=== PATIENT | female | born 1970 | race Caucasian/White ===

== ENCOUNTER 2020-04-15 12:52 | Outpatient (CLI) | payer OTHER, SELFPAY ==
--- NOTE | ~2020-04-15 | MM_ITS ---
EXAMINATION: MM diagnostic gato RT w wandy HISTORY: Approximately 6 x 9 mm circumscribed opacity in the very posterior aspect of mid to upper ri ght breast on screening MLO view of 09/25/2019, without ultrasound correlate on 10/15/2019 TECHNIQUE: ML, MLO and cc 3-D tomosynthesis images of the right breast and rotated lateral craniocaud al view were performed and synthetic 2-D images were generated. CAD analysis was submitted and interp reted. COMPARISON: 09/25/2019 bilateral digital screening mammogram 10/15/2019 diagnostic right digital mammogram and limited right breast ultrasound BREAST PARENCHYMAL COMPOSITION: There are scattered areas of fibroglandular density. FINDINGS: Previously reported mammographic opacity in the posterior mid to upper right breast on MLO projection is no longer detected. IMPRESSION: 1. No mammographic evidence of malignancy 2. Routine mammographic screening follow-up is recommended BI-RADS Category 1: Negative Reviewed, dictated and finalized at location A.
== END 2020-04-15 12:53 | disposition home or self-care (01) ==
LOC: ANHIMG 12:56
PROVIDERS: PCP Obstetrics & Gynecology; Visit Provider Obstetrics & Gynecology
DX: N63.10 Unspecified lump in the right breast, unspecified quadrant (principal)
CPT/HCPCS: 77061; 77065; G0279

== ENCOUNTER → 2021-10-16 11:02 | Outpatient (CLI) | payer OTHER, SELFPAY ==
--- NOTE | ~2021-10-16 | MM_ITS ---
EXAMINATION: MM screening [facility] BI w wandy HISTORY: Screening mammogram TECHNIQUE: Craniocaudal and mediolateral oblique 3-D tomosynthesis images were obtained and synthetic 2-D images were generated. CAD analysis was submitted and interpreted. COMPARISON: 04/15/2020, 10/15/2019, 09/25/2019 BREAST PARENCHYMAL COMPOSITION: There are scattered areas of fibroglandular density. FINDINGS: There is no evidence of suspicious mass, calcification, or architectural distortion to sugg est malignancy in either breast. There has been no suspicious interval change. IMPRESSION: 1. No mammographic evidence of malignancy. 2. Recommend routine screening mammography in one year. BI-RADS Category 1: Negative Reviewed, dictated and finalized at location A. IST INSTRUMENTATION
== END ==
PROVIDERS: Visit Provider Nurse Practitioner Obstetrics & Gynecology
DX: Z12.31 Encounter for screening mammogram for malignant neoplasm of breast (principal)
CPT/HCPCS: 77063; 77067

== ENCOUNTER 2022-04-30 00:21 | Day surgery (SDC) | payer OTHER, SELFPAY ==
[2022-04-15 10:29] VITALS: BMI 32.3
[2022-04-30 07:50] VITALS: BP 152/84; PULSE 74; RESP 18; TEMP 37.2; O2SAT 97
[2022-04-30] MEDS: LACTATED RINGERS 1,000 ML 150 ML IV CONT (08:07)
--- NOTE | 2022-04-30 08:15 | P.PNAN_ITS ---
Anes - Initial Pre Proc Eval Procedure: Operation Date: 04/30/22 09:00 Proposed Procedures p Screening Colonoscopy - Julien Carmichael MD Date/Time: 04/30/22 08:15 Surgeon: Julien Carmichael MD Pre Op Diagnosis: neoplasm screening Patient Data Age: 51 Gender: F Height: 1.68 m Weight: 94.3 kg Last Vital Signs Temp 98.9 F 04/30/22 07:50 Pulse 74 04/30/22 07:50 Resp 18 04/30/22 07:50 BP 152/84 H 04/30/22 07:50 Pulse Ox 97 04/30/22 07:50 O2 Del Method Room Air 04/30/22 07:50 Allergies Allergy/AdvReac Type Severity Reaction Status Date / Time Sulfa (Sulfonamide Allergy Unknown unknown Verified 04/30/22 07:48 Antibiotics) Home Medications Medication Instructions Recorded Confirmed Type loratadine 10 mg tablet See Rx Instructions PO DAILY 03/19/22 04/15/22 History paroxetine HCl 30 mg tablet (Paxil) 30 mg PO DAILY 03/19/22 04/15/22 History Patient hx anesthesia problems: none Family hx anesthesia problems: none Results Review: All pre-operative results and documents have been reviewed as part of the pre- operative evaluation. 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 Informed Consent: The patient's anesthetic plan and its attendant risks and benefits were discussed with the patient/family/POA. Questions were solicited and answers provided to the satisfaction of the patient/family/POA.
--- NOTE | 2022-04-30 08:16 | P.CONGI_ITS ---
Assessment and Plan Assessment and plan (1) Encounter for screening colonoscopy: Code(s): Z12.11 - Encounter for screening for malignant neoplasm of colon Status: Acute Assessment and Plan: Patient presents today for neoplasia screening colonoscopy. Appears to be at average risk for colon polyps. GI Consult Note Consult date/time: 04/30/22 08:16 Reason for consult: Neoplasia screening. HPI: Bibi Jones is a 51 year old female Referred for neoplasia screening colonoscopy. Patient reports that her weight appetite bowel movements are normal. She denies any bleeding. She has had no abdominal pain. Her family history is noncontributory. 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 She apparently saw a tissue specialist. And evidently referred eventually for colonoscopy. CBC available in our records reveal a normal CBC in no iron studies. Patient denies any obvious bleeding as stated. She states she has had heavy periods in the past. Review of Systems Review of Systems: Review of systems noncontributory. 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 Gender identity (if verbalized by the patient): Female Meds Home Medications and Allergies Home Medications Medication Instructions Recorded Confirmed Type loratadine 10 mg tablet See Rx Instructions PO DAILY 03/19/22 04/15/22 History paroxetine HCl 30 mg tablet (Paxil) 30 mg PO DAILY 03/19/22 04/15/22 History Allergies Allergy/AdvReac Type Severity Reaction Status Date / Time Sulfa (Sulfonamide Allergy Unknown unknown Verified 04/30/22 07:48 Antibiotics) Vital Signs Vital Signs - 24 hr 04/30/22 07:50 Temperature 98.9 F Pulse Rate 74 Respiratory Rate 18 Blood Pressure 152/84 H Pulse Oximetry 97 Oxygen Delivery Room Air Exam Narrative: Physical exam reveals patient to be alert. Vital signs stable. HEENT exam is unremarkable. Patient is anicteric. Lungs are clear to auscultation and percussion. Heart is without murmur or extra sounds. Abdominal exam bowel sounds are present soft nontender with no organomegaly. Digital external rectal exam is normal.
[2022-04-30 09:25] VITALS: BP 125/80; PULSE 66; RESP 15; O2SAT 100
[2022-04-30 09:35] VITALS: BP 133/83; PULSE 59; RESP 17; O2SAT 100
[2022-04-30 09:45] VITALS: BP 144/86; PULSE 58; RESP 20; O2SAT 97
== END 2022-04-30 09:52 | disposition home or self-care (01) ==
PROVIDERS: PCP Family Medicine; Visit Provider Internal Medicine Gastroenterology
PROC: 0DJD8ZZ Inspection of Lower Intestinal Tract, Via Natural or Artificial Opening Endoscopic (ICD-10-PCS; CPT 45378; principal; 2022-04-30 09:00)
DX: Z12.11 Encounter for screening for malignant neoplasm of colon (principal); K64.8 Other hemorrhoids; E66.9 Obesity, unspecified; Z68.33 Body mass index [BMI] 33.0-33.9, adult
CPT/HCPCS: 45378; J2704; J7120

== ENCOUNTER → 2023-07-08 13:28 | Outpatient (CLI) | payer OTHER, SELFPAY ==
--- NOTE | ~2023-07-08 | MM_ITS ---
EXAMINATION: MM screening [facility] BI w wandy HISTORY: Screening mammogram TECHNIQUE: Craniocaudal and mediolateral oblique 3-D tomosynthesis images were obtained and synthetic 2-D images were generated. CAD analysis was submitted and interpreted. COMPARISON: 10/16/2021, 04/15/2020, 10/15/2019, 09/25/2019 BREAST PARENCHYMAL COMPOSITION: There are scattered areas of fibroglandular density. FINDINGS: No suspicious mass, calcification, or architectural distortion are identified in either ryder ast to suggest malignancy. There has been no suspicious interval change. IMPRESSION: 1. No mammographic evidence of malignancy. 2. Recommend routine screening mammography in one year. BI-RADS Category 1: Negative Reviewed, dictated and finalized at location A.
== END ==
PROVIDERS: PCP Nurse Practitioner Obstetrics & Gynecology; Visit Provider Nurse Practitioner Obstetrics & Gynecology
DX: Z12.31 Encounter for screening mammogram for malignant neoplasm of breast (principal)
CPT/HCPCS: 77063; 77067

== ENCOUNTER 2023-09-16 10:54 | Outpatient (CLI) | payer OTHER, SELFPAY ==
[2023-09-16 15:16] LABS: Alanine Aminotransferase 29 U/L (6-35); Albumin Level 4.4 g/dL (3.5-5.1); Alkaline Phosphatase 58 U/L (38-126); Anion Gap 4 mmol/L (8-16); Aspartate Amino Transferase 38 U/L (14-36); Blood Urea Nitrogen 17 mg/dL (7-17); Calcium 10.1 mg/dL (8.4-10.2); Carbon Dioxide 32 mmol/L (22-30); Chloride 102 mmol/L (98-107); Estimated Glomerular Filt Rate > 60; Glucose 116 mg/dL (65-110); Potassium 4.9 mmol/L (3.4-5.0); Sodium 138 mmol/L (137-145)
[2023-09-16 15:21] LABS: Basophils Percent Auto 0.5 % (0.2-1.2); Eosinophils Absolute Auto 0.3 K/mm3 (0-0.3); Eosinophils Percent Auto 4.6 % (0-4.4); Hematocrit 46.2 % (37.0-47.0); Hemoglobin 15.2 g/dL (12.0-15.0); Immature Granulocyte Absolute 0.02 K/mm3 (0.00-0.031); Immature Granulocyte Percent A 0.3 % (0-0.5); Lymphocytes Absolute Auto 1.94 K/mm3 (0.9-3.2); Mean Corpuscular HGB Conc 32.9 g/dl (32-36); Mean Corpuscular Hemoglobin 29.9 pg (26-34); Mean Corpuscular Volume 90.9 fl (80-100); Mean Platelet Volume 10.4 fl (7.4-10.4); Monocytes Absolute Auto 0.4 K/mm3 (0.1-0.6); Monocytes Percent Auto 6.8 % (2.6-8.5); Neutrophils Absolute Auto 3.7 K/mm3 (1.3-6.7); Neutrophils Percent Auto 57.8 % (45.5-73.1); Platelet Count Result 259 k/mm3 (150-375); Red Blood Count 5.08 M/mm3 (4.2-5.4); Red Cell Distribution Width 12.5 % (11.5-14.5); White Blood Count 6.5 K/mm3 (4.5-10.0)
[2023-09-16 16:44] LABS: Vitamin D 25 Hydroxy 34.2 ng/mL
[2023-09-16 17:16] LABS: Hemoglobin A1C 5.1 % (<5.7)
== END 2023-09-16 10:55 | disposition home or self-care (01) ==
LOC: ANHGOSHLAB 10:55
PROVIDERS: PCP Family Medicine; Visit Provider Family Medicine
DX: Z13.228 Encounter for screening for other metabolic disorders (principal); Z13.29 Encounter for screening for other suspected endocrine disorder; R73.9 Hyperglycemia, unspecified; E55.9 Vitamin D deficiency, unspecified; R53.83 Other fatigue
CPT/HCPCS: 36415; 80053; 82306; 83036; 84443; 85025

== ENCOUNTER 2025-03-06 15:01 | Outpatient (CLI) | payer OTHER, SELFPAY ==
--- NOTE | ~2025-03-06 | MM_ITS ---
EXAMINATION: MM screening [facility] BI w wandy HISTORY: Screening TECHNIQUE: Craniocaudal and mediolateral oblique 3-D tomosynthesis images were obtained and synthetic 2-D images were generated. CAD analysis was submitted and interpreted. COMPARISON: Comparison to multiple prior studies sequentially, with oldest reviewed study dated 06/23. BREAST PARENCHYMAL COMPOSITION: Not dense: There are scattered areas of fibroglandular density. FINDINGS: There is no evidence of suspicious mass, calcification, or architectural distortion to sugg est malignancy in either breast. There has been no suspicious interval change. IMPRESSION: 1. No mammographic evidence of malignancy. 2. Recommend routine screening mammography in one year. BI-RADS Category 1: Negative Reviewed, dictated and finalized at location A.
== END 2025-03-06 15:02 | disposition home or self-care (01) ==
LOC: MICIMG 15:02
PROVIDERS: PCP Obstetrics & Gynecology; Visit Provider Obstetrics & Gynecology
DX: Z12.31 Encounter for screening mammogram for malignant neoplasm of breast (principal)
CPT/HCPCS: 77063; 77067

== ENCOUNTER 2025-11-12 14:11 | Outpatient (CLI) | payer OTHER, SELFPAY ==
[2025-11-12 14:33] LABS: Hematocrit 41.9 % (37.0-47.0); Hemoglobin 13.2 g/dL (12.0-15.0)
--- OUTSIDE RECORDS SUMMARY | 2025-11-12 16:43 | XMS_ITS | Data Portability ---
Author Organization tribr [employer], [facility] Address [address] [place] [id number] Assessment Encounter Date Assessment Date Assessment LastModified by Organization Details LastModified Time 07/25/2025 07/25/2025 1 . Right knee pain with mechanical symptoms (catching/locking) - Suspected medial meniscus tear based on history, physical exam, and ultrasound findings - Early degenerative joint disease with moderate patellofemoral changes - Joint effusion present indicating active inflammation 2. Plan: - Order updated MRI of right knee to better evaluate meniscus tear and rule out loose bodies - Follow-up appointment to review MRI results and discuss treatment options - Potential treatment pathways include: a) Arthroscopic intervention for meniscus tear if mechanical symptoms are confirmed to be due to unstable meniscal tear b) Consider biologics treatment following any necessary mechanical intervention - Patient educated that mechanical symptoms (catching/locking) may not respond well to biologics alone and may require surgical intervention first RIGHT KNEE: Potential candidate for biologics treatment following evaluation of MRI and possible arthroscopic intervention if needed Patient educated that stem cell therapy has limitations for mechanical symptoms such as catching and locking Biologics may be beneficial as a secondary treatment to address underlying arthritis and prevent progression after addressing any mechanical issues Final biologics treatment plan to be determined after MRI review and potential surgical intervention Not available 07/31/2025 12:38:33 08/27/2025 08/27/2025 1. Knee arthriti s with multiple intra-articular loose bodies: - MRI confirms multiple loose bodies within the knee joint, largest measuring 10mm - Tricompartmental arthritis present, most significant in patellofemoral compartment - Mechanical symptoms (locking) likely due to loose bodies rather than cartilage flap - Previous management included cortisone injections with limited relief - Plan: Referral to orthopedic surgeon (Dr. Ralph Guevara recommended) for arthroscopic removal of loose bodies - Post-arthroscopy, patient would be a good candidate for nanoparticle based EVM amnion allograft therapy to address underlying arthritis - Discussed with patient that arthroscopy would address mechanical symptoms from loose bodies but not the underlying arthritis - Patient may follow up with previous orthopedist who had suggested arthroscopy KNEE: Recommended biologics therapy following arthroscopic removal of loose bodies Treatment rationale: To address underlying tricompartmental arthritis and potentially slow disease progression after mechanical issues (loose bodies) are addressed surgically Timing: To be scheduled after recovery from arthroscopic procedure Expected outcomes: Reduction in inflammation, improved pain control, and potential slowing of arthritic progression Not available 09/01/2025 23:21:01 Plan of Treatment Reminders Order Date Submit Date Provider Last Modified By Organization Details Last Modified Time Details Appointments None recorded. Lab None recorded. Referral None recorded. Procedures None recorded. Surgeries None recorded. Imaging XR, knee - RM 8 2024 025 [email or web address] Not available 09:50:19 MRI, knee, w/o contrast - PAIN > 5 YEARS/ FAILED PT/ FAILED CSI AND GEL INJECTION 2024 025 KATIE Not available 11:12:48 Medication Orders None recorded. Patient TargetsNo targets recorded. Patient InstructionsNo instructions recorded. Reason for Referral None Reported. Results Created Date Observation Date Name Description Value Unit Range Abnormal Flag Note LastModifiedBy Organization Detail LastModifiedTime 08/23/20 25 MRI, knee, w/o contr ast No observ ation record ed. [email or web address] Not Available 08/29 09:00:09 Result Notes None recorded. Problems No Known Problems Procedures Surgical History Date Name Laterality Status Provider Name and Address Organization Details Recorded Time 0 Tonsillectomy completed Chiquita Sanchez [facility] [employer] [facility] 07/25/2025 16:16:13 Imaging Results None recorded. Procedure Notes None recorded. Medical Equipment None Reported. Medications Name Sig Start Date Stop Date Status Note LastModified by Organization Details LastModified Time fluconazole 150 mg tablet TAKE 1 TABLET BY MOUTH EVERY OTHER DAY active Not Available Not Available No t Available Paxil 20 mg tablet Take 1 tablet every day by oral route. active Not Available Not Available No t Available triamcinolon e acetonide 0.1 % topical cream APPLY THIN LAYER TOPICALLY TO THE AFFECTED AREA TWICE DAILY active Not Available Not Available No t Available clotrimazole -betamethaso ne 1 %-0.05 % topical cream APPLY TOPICALLY TO THE AFFECTED AND SURROUNDING AREAS TWICE DAILY IN THE MORNING AND IN THE EVENING FOR 2 WEEKS active Not Available Not Available No t Available hydroxyzine HCl 25 mg tablet TAKE 1 TABLET BY MOUTH FOUR TIMES DAILY NEEDED FOR ITCHING active Not Available Not Available Not Available loratadine active Not Available Not Av ailable Not Available Vitals Date Recorded Body height Body mass index (BMI) Body weight Heart rate Systolic And Diastolic Provider Name and Address Organization Details Last Updated DateTime 07/25/2025 170.18 cm 32.1 kg/m2 74596.44 g 66 /min 160/89 mm[Hg] [facility] 07/25/2025 16:13:35 Date Recorded Body height Heart rate Systolic And Diastolic Provider Name and Address Organization Details Last Updated DateTime 08/27/2025 170.18 cm 64 /min 146/84 mm[Hg] [facility]nesis Soares [facility] 08/27/2025 13:11:30 Social History Question Answer Notes LastModified by [employer] Details LastModified Time Tobacco Smoking Status Never Smoker [facility] 07/25/2025 16:15:56 What Is Your Relationship Status? Information not available 07/25/2025 Sex: Unknown Functional Status Question Answer Note LastModified by [employer] Details LastModified Time What is your level of alcohol consumption? Occasional Information not available 07/25/2025 Are you currently employed? Yes Information not available 07/25/2025 Mental Status None recorded. Family History Relationship Description Onset Age of this Age Resolved Age Notes LastModified by Organization Details LastModified Time Mother Heart disease Not available 2024 16:14:40 Mother Diabetes mellitus Not available 2024 16:14:58 Mother Hypertensive disorder Not available 2024 16:15:09 Mother Kidney disease Not available 2024 16:15:44 Maternal Grandmother Diabetes mellitus Not available 2024 16:14:58 Maternal Uncle Diabetes mellitus Not available 2024 16:14:58 Father Hypertensive disorder Not available 2024 16:15:09 Father Hyperthyroid ism Not available 2024 16:15:18 Father Malignant neoplastic disease Not available 2024 16:15:23 Father Cerebrovascu lar accident Not available 16:15:31 Medical History Condition Response Other Cancer N HIV or AIDS N Coronary Artery Disease N Gout N Kidney Stones N Hyperthyroidism N Breast Cancer N Hernia N Head Trauma/Injury N Lung Cancer N Hypothyroidism N Lung Disease N Depression N Blood Clots N COPD N Pneumonia N Pacemaker N Parkinson's N Anxiety Disorder N Multiple Sprains N Arthritis Y Alcohol / Substance Abuse N Kidney Cancer N Cancer N Stroke N Melanoma N Orly Danlos Syndrome (EDS) N Bowel Dysfunction N Neck Injury N Leg or Foot Ulcers N High Cholesterol N Skin Cancer N Liver Disease N Rheumatoid Arthritis N Headaches N Fibromyalgia N Gastric Issues N Concussion N Kidney Disease N Heart Problems N Scoliosis N Chronic use of Pain Medication N Prostate Cancer N Migraines N Thyroid Problems N Alzheimers N DVT N Autoimmune Disorder N Anemia N Multiple Sclerosis N Tendon Tear N Ulcers N Heart Attack ([place]) N Osteopenia N Diabetes N Bleeding Disorder N Seizures/Epilepsy N Cardiac Stent N Tuberculosis N A-FIB N BPH N Lymphoma N Urinary Tract Infection N Back Problems N Diverticulitis N Dementia N Vision Problems N Asthma N 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 Obstetrics History GPAL:G 0 P 0 0 0 0 Past Encounters Encounter ID Performer Location Encounter Start Date Encounter Closed Date Diagnosis/Indication Diagnosis SNOMED-CT Code Diagnosis ICD10 Code Diagnosis IMO Codes Diagnosis Note [id number] Noé Huggins [facility] [address] [facility] [place] [address] 07/25/2025 15:41:02 07/25/2025 16:58:46 Pain of knee region 1389049437 M25.561 G89.29 [id number] Noé Huggins [facility] [address] [facility] [place] [address] 08/27/2025 12:58:11 08/27/2025 16:40:10 Pain of knee region 8336173141 M25.561 [id number] Health Concerns Section Related Observation LastModified by Organization Detai ls LastModified Time None Recorded Concern Status LastModified by Organization Details LastModified Time None Recorded Advance Directives Directive None Recorded Payers Insurance Date Sequence Insurance Name Policy Number Policy Mendiola Covered Member ID Mendiola Member ID Guarantor Name 09/02/2025 1 [facility] [id number] Bibi Jones [id number] Bibi Jones Notes Date Note Type Note Provider Name and Address Organization Details Recorded Time 07/25/2025 text/html Serge Jones presents with right knee pain that has been ongoing for approximately 5 years. She reports multiple interventions including steroid injections and gel injections, with the most recent gel injection in October and steroid injection a few months prior to that. Patient reports no treatment since October. She describes inability to fully straighten the knee and experiences hesitation when standing to ensure the knee will support her. Pain is primarily located medially but also felt superiorly. She experiences pain especially when going downstairs. Patient reports catching and locking sensations occurring multiple times daily, requiring her to wiggle or shake the knee to resolve. She notes occasional swelling, with some puffiness noted today. Patient had an MRI approximately 2 years ago which reportedly showed arthritis, and she states her condition has worsened somewhat since then. She mentions that her previous orthopedic doctor, Dr. Sue, had suggested trimming loose cartilage as a next step after injections provided limited relief. Noé Huggins [address] [facility], [place], [address], [facility] [employer], [facility] 07/31/2025 13:31:11 08/27/2025 text/html Reba jr presents today with complaints of foot pain, specifically in the toe area. Patient reports the foot pain started approximately two weeks ago and has progressively worsened. Patient believes the foot pain may be related to altered gait due to ongoing knee issues. Patient states, I think we're walking and walking differently because my knee is really taking a toll on my foot. Patient notes visible differences in the affected foot compared to the unaffected side when standing. Patient denies any trauma or injury to the foot. Patient reports inability to wear certain footwear, specifically mentioning foot gloves due to discomfort with the toe post between the toes. Patient has been using a metatarsal pad which helps with the ball of the foot but not the toe area. Patient also presents with ongoing knee issues, reporting locking sensations in the knee joint. Previous treatment for knee includes cortisone injections from a previous orthopedist who had suggested arthroscopic surgery as a next step. Noé Huggins [address] [facility], [place], [phone], [facility] [employer] [facility], [facility] 09/01/2025 23:21:49 OBGyn Episode No OBEpisode recorded.
--- OUTSIDE RECORDS SUMMARY | 2025-11-12 16:43 | XMS_ITS | Continuity of Care Document ---
Author Organization [facility]CHosea Micanopy Address [address] [place] [address] Care Team Providers Care Mill Crane Operator Name Role Phone CAMARABRIGHT Primary Care Provider [phone] Assessment Encounter Date Assessment Date Assessment LastModified by Organization Details LastModified Time 08/30/2025 08/30/2025 Annual gynecological exam performed. Patient will come back in a year unless there are new symptoms. [email or web address] Not available 08/30/2025 10:41:29 Plan of Treatment Reminders Order Date Submit Date Provider Last Modified By Organization Details Last Modified Time Details Appointments None recorded. Lab pap, IG + HR HPV - HPV regardless but if HPV is positive need subtyping 16,18/[address] [facility] (Lab), [address], [place], [address], 14:27:31 Referral None recorded. Procedures None recorded. Surgeries None recorded. Imaging MAMMO, screening, digital, bilateral 2024 [facility], [address], [place], [address], 04:01:49 Medication Orders Paxil 20 mg tablet 2024 [id number], [address], [place], [place], [id number], 12:31:15 Patient TargetsNo targets recorded. Patient InstructionsNo instructions recorded. Reason for Referral None Reported. Results Created Date Observation Date Name Description Value Unit Range Abnormal Flag Note LastModifiedBy Organization Detail LastModifiedTime 08/30/2008/30/2025 IMAGE GUIDE D PAP AND HPV REGAR DLESS image guided Pap, HPV regardless of Pap result SEE RESULT S BELOW CASE REPOR T: Cytol ogy Gynec ologi sharron Repor t Case: [id number] Autho silvia hanna Provi priscilla: Rukhsana Ellis, LINDA Kendrick cted: 08/30 1338 Order ing Locat ion: [place] Patho logmarta Recei leo: 09/02 0700 First Teresa n: Cathy Goff, CT Speci men: Teresa jeong Pap - Image d, Cervi x STATE MENT OF ADEQU ACY: Satis facto ry for evalu ation Trans forma tion zone compo nent prese nt Parti asya obscu ring infla mmati on prese nt ----- ----- ----- ----- ----- ----- ----- ----- ----- ----- ----- ----- ----- ----- ----- ----- ----- ---- FINAL DIAGN OSIS: Negat johnson for Intra epith elial Lesio n or Aaron gipson (NIL) . Elect lucio keita d by Cathy Goff, CT on 2024 at 1321 CDT ----- ----- ----- ----- ----- ----- ----- ----- ----- ----- ----- ----- ----- ----- ----- ----- ----- ---- HPV RESUL TS: HPV mRNA E6/E7 : No HPV mRNA Detec melinda NOTE: This high risk HPV mRNA assay detec ts fourt een high- risk HPV types (16, 18, 31, 33, 35, 39, 45, 51, 52, 56, 58, 59, 66, 68) witho ut diffe renti ation . COMME NT: This speci men was revie wed by a Cytot echno logis t and/o r Patho logis t (as indic ated in this repor t) after evalu ation using the Thinp rep Imagi ng Syste m. CLINI SHARRON INFOR MATIO N: Menst rual Statu s: LMP (if appli cable ): Clini sharron Histo ry/Pr eviou s Pap: Type of Neopl hilda (if appli cable ): Signi fican t Clini sharron Findi ngs: Other Histo ry: Hormo adin (if appli cable ): PAP EDUCA GAVINO L NOTE: The Pap Test is a scree adenike test with an inher ent false negat johnson rate. Liqui d-bas ed sampl ing may decre ase, but will not elimi chantale, false negat johnson resul ts. A negat johnson resul t does not precl ude the prese nce and/o r devel opmen t of disea se, since the prese nce of abnor mal cells in the sampl e depen ds on the locat ion of the lesio n and sampl ing techn ique. Kathy nued regul ar scree adenike is the best metho d of cance r preve ntion . If repor melinda cytol ogic findi ng do not corre late with physi sharron and/o r histo rical findi ngs, furth er inves tigat ion is recom whitney d, as clini hamlet lima nted. Not Available [facility] (Lab) [address], [place], [address], 09/04/2025 14:27:31 Result Notes None recorded. Problems Name Problem SNOMED Code Status Onset Date Resolution Date Notes Provider Name and Address Organization Details Recorded Time Speciali zed medical examinat ion Completed 201003/04/2022 Gynecolo gical Examinat ion;Nabeel rded Elsewher e: No Locat ion: [facility] S ource: EHR Gradall Operator manolo: N Practi ce ID: 0001 Lewis lable Time: 03:30:00 PM [place] Foster [facility] 2 20:47:56 Educatio n Completed 201203/04/2022 Other general counseli ng and advice on contrace ptive manageme nt;Recor ded Elsewher e: No Locat ion: [facility] S ource: EHR Gradall Operator manolo: Y Practi ce ID: 0001 Lewis lable Time: 03:30:00 PM [place] Foster [facility] 2 20:47:56 Headache [id number] Completed 201303/04/2022 Headache ;Recorde d Elsewher e: No Locat ion: [facility] Practi ce ID: 0001 Lewis lable Time: 01:00:00 PM [place] Foster [facility] 2 20:47:56 Female urinary stress incontin ence [id number] Completed 201303/04/2022 Stress incontin ence, female;R ecorded Elsewher e: No Locat ion: [facility] S ource: EHR Gradall Operator manolo: N Practi ce ID: 0001 Lewis lable Time: 01:00:00 PM [place] Foster [facility] 2 20:47:56 Insertio n of intraute rine contrace ptive device Completed 201303/04/2022 INSERTIO N OF IUD;Nabeel rded Elsewher e: No Locat ion: [facility] S ource: EHR Gradall Operator manolo: N Practi ce ID: 0001 Lewis lable Time: 10:30:00 AM [place] [facility] 2 20:47:56 Amenorrh ea [id number] Completed 201403/04/2022 Amenorrh ea;Recor ded Elsewher e: No Locat ion: [facility] S ource: EHR Gradall Operator manolo: N Practi ce ID: 0001 Lewis lable Time: 10:30:00 AM [place] blount [facility] 2 20:47:56 Obesity [id number] Completed 201403/04/2022 Obesity; Recorded Elsewher e: No Locat ion: [facility] S ource: EHR Gradall Operator manolo: N Abnerti ce ID: 0001 Lewis lable Time: 02:45:00 PM [place] blount [facility] 2 20:47:56 Screenin g for malignan t neoplasm of cervix Completed 201403/04/2022 Screenin g for malignan t neoplasm s of the cervix;R ecorded Elsewher e: No Locat ion: [facility] S ource: EHR Gradall Operator manolo: N Abnerti ce ID: 0001 Lewis lable Time: 02:45:00 PM [place] blount [facility] 2 20:47:56 Depressi ve disorder [id number] Completed 201503/04/2022 Major depressi ve disorder , single episode, unspecif ied;Nabeel rded Elsewher e: No Locat ion: [facility] S ource: EHR Gradall Operator manolo: N Abnerti ce ID: 0001 Lewis lable Time: 04:00:00 PM [place] blount [facility] [address] 20:47:[address] Concept Completed 201603/04/2022 Encntr for client portfolio manager exam (general ) (routine ) w/o abn findings ;Practic e ID: 0001 [place] Foster [facility] 2 20:47:56 Screenin g for malignan t neoplasm of rectum Completed 201603/04/2022 Encounte r for screenin g for malignan t neoplasm of rectum;P ractice ID: 0001 [place] blount [facility] [address]:47:[address] Concept Completed 201603/04/2022 Encntr for general adult medical exam w/o abnormal findings ;Recorde d Elsewher e: No Locat ion: [facility] S ource: EHR Gradall Operator manolo: N Practi ce ID: 0001 Lewis lable Time: 08:30:00 AM [place] Foster [facility] 2 20:47:56 Acute vaginiti s [id number] Completed 201603/04/2022 Acute vaginiti s;Practi ce ID: 0001 [place] Foster [facility], [facility] 2 20:47:56 Foreign body Completed 201603/04/2022 Other specifie d retained foreign body fragment s;Practi ce ID: 0001 [place] Foster [facility], [facility] 2 20:47:56 Body mass index 30+ - obesity 124322414 Completed 201703/04/2022 Body mass index (BMI) 33.0-33. 9, adult;Re corded Elsewher e: No Locat ion: [facility] S ource: EHR Gradall Operator manolo: N Practi ce ID: 0001 Lewis lable Time: 04:30:00 PM [place] Foster [facility] 2 20:47:56 Blood leukocyt e number above referenc e range [id number] Completed 201803/04/2022 Elevated white blood cell count, unspecif ied;Prac mellisa ID: 0001 [place] Foster [facility], [facility] 2 20:47:56 Replacem ent of intraute rine contrace ptive device Completed 201803/04/2022 Encntr for removal and reinsert ion of uterin contrace p dev;Nabeel rded Elsewher e: No Locat ion: [facility] S ource: EHR Gradall Operator manolo: N Practi ce ID: 0001 Lewis lable Time: 11:00:00 AM [place] blount [facility] 2 20:47:56 Pregnanc y test negative [id number] Completed 201803/04/2022 Encounte r for pregnanc y test, result negative ;Recorde d Elsewher e: No Locat ion: [facility] S ource: EHR Gradall Operator manolo: N Practi ce ID: 0001 Lewis lable Time: 11:00:00 AM [place] Foster [facility] 2 20:47:56 Clinical finding Completed 201803/04/2022 Presence of (intraut erine) contrace ptive device;R ecorded Elsewher e: No Locat ion: [facility] S ource: EHR Gradall Operator manolo: N Practi ce ID: 0001 Lewis lable Time: 03:00:00 PM [place] blount [facility] 2 20:47:56 Lump of subareol ar area of right breast [id number] Completed 201803/04/2022 Unspecif ied lump in right breast, subareol ar;Recor ded Elsewher e: No Locat ion: [facility] S ource: EHR Gradall Operator manolo: N Abnerti ce ID: 0001 Lewis lable Time: 02:15:17 PM [place] Foster [facility] 2 20:47:56 Problem Notes None recorded. Procedures Surgical History Date Name Laterality Status Provider Name and Address Organization Details Recorded Time 03/06/20 25 Date of Last Mammogram completed Ila Sanchez [facility] 08/30/2025 10:44:24 10/05/20 24 IUD Removal completed TRISTIAN MILLER NP [address], [place], [address], [facility] 10/05/2024 11:54:06 10/05/20 24 IUD Insertion completed TRISTIAN MILLER NP [address], [place], [address], [facility] 10/05/2024 11:52:38 07/20/20 24 Date of Last Pap Smear completed Tana Myers [facility] 09/18/2024 14:58:36 06/10/20 23 Colposcopy completed Eva Styles, [facility]- [address], [place], [address], [facility] 06/10/2023 16:39:20 06/10/20 23 Colposcopy completed Tarsha Long [facility] 01/03/2024 11:56:37 11/28/19 22 Date of Last Colonoscopy completed Tarsha Long [facility] 05/20/2023 12:04:40 LEEP completed Breonna Swartz [facility] 07/07/2020 15:35:42 Dilation and Curettage completed Breonna Swartz [facility] 07/07/2020 15:35:48 Imaging Results None recorded. Procedure Notes None recorded. Medical Equipment None Reported. Allergies Allergen ID Allergen Name Allergen Category Reaction Reaction Severity Criticality Documentation Date Start Date Code Code System Note Provider Name and Address Organization Details Recorded Time 1651 Substance with sulfonami de structure and antibacte rial mechanism of action (substanc e) medicatio n Not available Not available Not available 07/07/2020 33260 8003 SNOMED Breonna Swartz [facility] 0 15:34:33 20140 nitrofura ntoin medicatio n Not available Not available Not available 03/05/2022 7454 RxNorm [place] Foster [facility] 2 12:27:56 Medications Name Sig Start Date Stop Date Status Note LastModified by Organization Details LastModified Time Mirena 21 mcg/24 hr (up to 8 years) 52 mg intrauter ine device insert 11/08/ 2024 active Not Available Not Available Not Avai lable prednison e 10 mg tablet 08/30 completed Not Available Not Available Not Available Iron (ferrous sulfate) 325 mg (65 mg iron) tablet Take 1 tablet every other day by oral route. active Not Available Not Available No t Available fluconazo le 150 mg tablet TAKE 1 TABLET BY MOUTH EVERY OTHER DAY 08/30 completed Not Available Not Available Not Available ampicilli n 500 mg capsule 07/07 completed Not Available Not Available Not Available valacyclo vir 1 gram tablet TAKE 1 TABLET BY MOUTH EVERY 12 HOURS WITH MEALS FOR 7 DAYS 07/20 completed Not Available Not Available Not Available fluconazo le 200 mg tablet Take 1 tablet every day by oral route. 09/05 completed Not Available Not Available Not Available metronida zole 0.75 % (37.5 mg/5 gram) vaginal gel insert 1 applicat orful by vaginal route every day at bedtime for 5 nights 01/03 completed Not Available Not Available Not Available metronida zole 500 mg tablet TAKE 1 TABLET BY MOUTH TWICE DAILY WITH MEALS FOR 7 DAYS 07/20 completed Not Available Not Available Not Available estradiol 0.05 mg/24 hr semiweekl y transderm al patch Apply 1 patch twice a week by transder mal route. 2024 active Not Available Not Available Not Avai lable ciproflox acin 500 mg tablet 07/07 completed Not Available Not Available Not Available triamcino lone acetonide 0.1 % topical cream APPLY THIN LAYER TOPICALL Y TO THE AFFECTED AREA TWICE DAILY 08/30 completed Not Available Not Available Not Available nystatin- triamcino lone 100,000 unit/gram -0.1 % topical ointment apply by topical route 2 times every day to the affected area(s) x 7 days 07/07 completed Not Available Not Available Not Available meloxicam 7.5 mg tablet take 1 tablet by oral route every day 03/16 completed Prescrib josie jolley: Yes Loca tion: Leigha jolley [facility] Serge odify By: [email or web address] Encounte r DateTime : 01/01/20 15 10:30:00 AM Not Available Not Available Not Available paroxetin e 30 mg tablet TAKE 1 TABLET BY MOUTH DAILY 10/24 /2024 completed Not Available Not Available Not Available paroxetin e 20 mg tablet TAKE 1 TABLET BY MOUTH DAILY 2024 active Not Available Not Available Not Avai lable nitrofura ntoin macrocrys martín 100 mg capsule 01/03 completed Not Available Not Available Not Available triamcino lone acetonide 0.1 % topical ointment APPLY THIN LAYER TOPICALL Y TO THE AFFECTED AREA TWICE DAILY FOR 5 DAYS NEEDED 07/20 completed Not Available Not Available Not Available clotrimaz ole-betam ethasone 1 %-0.05 % topical cream APPLY TOPICALL Y TO THE AFFECTED AND SURROUND ING AREAS TWICE DAILY IN THE MORNING AND IN THE EVENING FOR 2 WEEKS 08/30 completed Not Available Not Available Not Available nystatin- triamcino lone 100,000 unit/g-0. 1 % topical cream apply by topical route 2 times every day to the vaginal area in the morning and evening 07/07 completed Not Available Not Available Not Available diclofena c sodium 75 mg tablet,de layed release 01/03 completed Not Available Not Available Not Available hydroxyzi ne HCl 25 mg tablet TAKE 1 TABLET BY MOUTH FOUR TIMES DAILY NEEDED FOR ITCHING active Not Available Not Available No t Available ergocalci ferol (vitamin D2) 1,250 mcg (50,000 unit) capsule Take 1 capsule every week by oral route for 90 days. 05/20 completed Not Available Not Available Not Available Paxil 10 mg tablet take 1 tablet by oral route every day 11/02 completed Prescrib ed Elsewher e: Yes Loca tion: Leigha jolley [facility] odify By: yulisa Nj untchet DateTime : 11/02/20 11 03:30:00 PM Not Available Not Available Not Available progester one micronize d 100 mg capsule Take 1 capsule every day by oral route at bedtime. 2024 active Not Available Not Available Not Avai lable Levora-28 0.15 mg-0.03 mg tablet take 1 tablet by oral route every day for 28 days 12/12 completed Prescrib ed Elsewher e: No Locat ion: Leigha [facility] odify By: diego barajas DateTime : 11/15/20 12 10:45:00 AM Not Available Not Available Not Available Excedrin Extra Strength 250 mg-250 mg-65 mg tablet 02/14 completed Prescrib ed Elsewher e: Yes Loca tion: [facility] odify By: kelly barajas DateTime : 01/01/20 15 10:30:00 AM Not Available Not Available Not Available bupropion HCl XL 300 mg 24 hr tablet, extended release Take 1 tablet every day by oral route for 90 days. 03/05 completed Not Available Not Available Not Available bupropion HCl XL 150 mg 24 hr tablet, extended release Take 1 tablet every day by oral route for 30 days. 10/28 completed Not Available Not Available Not Available nitrofura ntoin monohydra te/macroc rystals 100 mg capsule Take 1 capsule every 12 hours by oral route for 7 days. 03/05 completed Not Available Not Available Not Available loratadin e 10/28 completed Not Available Not Available Not Available Feosol 01/03 completed FEOSOL BIFURATE 1 DAILY Not Available Not Available Not Available Claritin Liqui-Gel 10 mg capsule 08/30 completed Prescrib ed Elsewher e: Yes Loca tion: [facility] odify By: anna pineda DateTime : 03/28/20 14 10:30:00 AM Not Available Not Available Not Available Durolane 60 mg/3 mL intra-art icular syringe 08/30 completed Not Available Not Available Not Available Solosec [address] granules in packet Take 2 g every day by oral route in the morning for 1 day. 09/05 completed Not Available Not Available Not Available Paxlovid 300 mg (150 mg x 2)-100 mg tablets in a dose pack TK 2 NIRMATRE LVIR TS AND 1 RITONAVI R T TOGETHER PO BID FOR 5 DAYS BID FOR 5 DAYS 05/20 completed Not Available Not Available Not Available Vitals Date Recorded Body height Body mass index (BMI) Body weight Systolic And Diastolic Provider Name and Address Organization Details Last Updated DateTime 08/30/2025 166.37 cm 34.7 kg/m2 95833.58 g 142/82 mm[Hg] Ila Sanchez [place] [facility] 08/30/2025 10:42:10 Social History Question Answer Notes LastModified by Organizat ion Details LastModified Time Tobacco Smoking Status Never Smoker Ila blount, [facility] 11/07/2023 11:52:49 Do You Have An Advance Directive? No Information n ot available 03/05/2022 How Many Years Have You Consumed Alcohol? 30 Information not available 05/20/2023 Are You Blind Or Do You Have Difficulty Seeing? No Information n ot available 03/05/2022 What Is Your Level Of Caffeine Consumption? Occasional Information not available 05/20/2023 How Much Tobacco Do You Chew? None Information not available 09/20/2024 In The 14 Days Before Symptom Onset, Have You Had Close Contact With A Laboratory-confirm ed COVID-19 While That Case Was Ill? No Information n ot available 03/05/2022 In The 14 Days Before Symptom Onset, Have You Had Close Contact With A Person Who Is Under Investigation For COVID-19 While That Person Was Ill? No Information not available 03/05/2022 Have You Been To An Area Known To Be High Risk For COVID-19? No Information not available 03/05/2022 Are You Deaf Or Do You Have Serious Difficulty Hearing? No Information not available 03/05/2022 What Type Of Diet Are You Following? REGULAR Information n ot available 03/05/2022 What Is The Highest Grade Or Level Of School You Have Completed Or The Highest Degree You Have Received? [id number] Information not available 03/05/2022 Do You Use Protection During Sex? No Information not available 05/20/2023 Do You Use Your Seat Belt Or Car Seat Routinely? Yes Information not available 03/05/2022 Do You Have Smoke And Carbon Monoxide Detectors In Your Home? Yes Information not available 03/05/2022 How Much Tobacco Do You Smoke? No Information not available 05/20/2023 Do You Use Sunscreen Routinely? Yes Information not available 03/05/2022 Have You Used IV Drugs? No Information not available 03/05/2022 Do You Have Difficulty Walking Or Climbing Stairs? No [email or web address] Information not available 11/07/2023 Sex: Unknown Functional Status Question Answer Note LastModified by Organizat ion Details LastModified Time Do you use any illicit or recreational drugs? No Information not available 03/05/2022 What is your level of alcohol consumption? Occasional Information not available 05/20/2023 Are you able to walk independently without assistance or assistive devices? YESWOREST Information not available 03/05/2022 Are you able to care for yourself independently? 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 No [email or web address] Information not available 11/07/2023 What is your exercise level? Occasional Information not available 03/05/2022 Mental Status Question Answer Note LastModified by Organization D etails LastModified Time Do you feel stressed (tense, restless, nervous, or anxious, or unable to sleep at night)? [id number] [email or web address] Information not available 07/20/2024 Family History Relationship Description Onset Age of this Age Resolved Age Notes LastModified by Organization Details LastModified Time Mother Diabetes mellitus [email or web address] Not available 2019 15:35:23 Mother Hypertensive disorder [email or web address] Not available 2019 15:35:27 Mother Cardiac arrhythmia Not available 08/30 10:42:22 Mother Heart disease [email or web address] Not available 2024 10:42:22 Father Disorder of thyroid gland Not available 2021 12:33:22 Father Cerebrovascu lar accident [email or web address] Not available 01/2025 10:46:11 Medical History Condition Response Allergies (Food, seasonal, environmental ) Y Other N Breast Cancer N Drug/Latex Allergies/Reactions N Blood Transfusion N Dermatologic Disorders N Lung Disease N Defects or Inherited Disease N Breast Problem N Gestational Diabetes N Hematologic disorders N Anesthesia Complications N History of STI N Deep Vein Thrombosis N Polycystic ovary syndrome N Anxiety Disorder Y Autoimmune disease N Arthritis N Infertility N Polyps N Acid Reflux (GERD) N History of abnormal pap N Cancer N Stroke N Varicosities N Neurologic/Epilepsy N Endometriosis N High Cholesterol N Headaches N Fibromyalgia N Kidney Disease N Heart Problems N Kidney or Bladder Problems N Thyroid Problems N GI Problems N Eating Disorder N Anemia N Art (IVF or FET) N Psychiatric Illness N Ovarian Cancer N Diabetes N Pulmonary (TB, Asthma) N Hepatitis/Liver Disease N Eczema N Urinary Tract Infection N Abuse/Domestic Violence N Asthma N Trauma/Violence N Depression/ depression Y Heart Disease N Pre-Eclampsia N Hypertension N Osteoporosis N Thrombophilias N Gynecological History Statement/Question Response Date of Last Mammogram 03/06/2025 Flow Light Date of LMP 08/05/2025 N Was last menstrual period normal Y STIs/STDs N Date of Last Colonoscopy 11/28/2021 IUD Desired Control Method IUD Abnormal Pap Y On BCP's at Conception? N Colposcopy 06/10/2023 HPV Vaccine N Duration of Flow (days) 5 Current Control Method IUD Age at First Child 31 Are cycles usually normal Y Sexually Active? Y Menses Monthly N Age of first menstrual cycle 14 Date of Last Pap Smear 07/20/2024 Sexual Problems? N LMP Approximate N Obstetrics History GPAL:G 3 P 2 0 1 2 Type Value Full Term 2 Induced 1 Living 2 Total 3 Past Encounters Encounter ID Performer Location Encounter Start Date Encounter Closed Date Diagnosis/Indication Diagnosis SNOMED-CT Code Diagnosis ICD10 Code Diagnosis IMO Codes Diagnosis Note [id number] PAYAL Abreu Micanopy [address] [address] 08/30/2025 10:26:51 08/30/2025 12:41:57 Gynecologic examination 09079995 Z01.799 [id number] WWEMirena IUD (inserted 09/2024 and will 09/2032)Dwayne p - done todaySTI screen - declinedMa mmogram - order givenColon cancer screening - UTDDexa - n/aRoutine labs - UTD/PCPBP precaution s reviewed, encouraged PCP f/uRTC in 1 yr or sooner if needed Do monthly self breast exams.It is advised to get annual flu shot in the fall and she could obtain at local pharmacy. If you haven't received the Tdap vaccine in the last 10 years you should obtain one as well.Have mammogram yearly, bone density every 2-3 years and stay up to date on colon cancer screening. Engage in regular exercise. Avoid tobacco and illicit drugs. This lifestyle behavior pattern will lead to less health conditions and longer life span. If BMI greater than 25 dietary consult advised.Qu estions have been answered. Screening mammography 24 360362 Z12.31 [id number] Menopause finding [id number] 006 N95.1 [id number] Reviewed perimenopa use/menopa use and associated symptomsdi scussed hormonal and non hormonal management optionsNAM S handout givendoing well on paxil and desires to continue, refills sent x 12 months Health Concerns Section Related Observation LastModified by Organization Detai ls LastModified Time None Recorded Concern Status LastModified by Organization Details LastModified Time None Recorded Payers Encounter Date Sequence Insurance Name Policy Number Policy Mendiola Covered Member ID Mendiola Member ID Guarantor Name 08/30/2025 1 [facility] [id number] Bibi Jones [id number] Bibi Jones Notes Date Note Type Note Provider Name and Address Organization Details Recorded Time 08/30/20 25 text/htm l Annual GYNReported by PatientGenitourinary symptomsFor menstrual cycle, patient reportsnormal menses. For urinary symptoms, patient reportsno hematuriaandno incontinence. For vulva, patient reportsno genital lesion. For vagina, patient reportsnormal vaginal discharge.Breast symptomsFor breast, patient reportsno breast pain,no breast lump, andno nipple discharge.ContraceptionFor current contraception, patient reportssatisfied with current contraceptionandintrauterine device (iud).Endocrine symptomsFor sexual complaints, patient reportsno sexual complaints,no pain during intercourse, andnormal libido. For menopausal symptoms, patient reportsno menopausal symptomsandnormal vaginal lubrication.Psychological symptomsFor psychological symptoms, patient reportsno depression,no anxiety, andno pmdd.Preventative measuresFor preventive measures, patient reportsencourage self breast examination,encourage regular exercise,encourage no tobacco use, andencourage regular mammograms starting age 40.54yo eB - Mirena IUD (inserted 10/05/2024)last pap 06/2024 : nilm, HPV (-)h/o LEEPmammogram olonoscopy UTD doing well on paxil for VSM and depression, symptoms controlled has noticed increased brain fog, fatigue, trouble sleeping over the past yr Ila blount [place] - [facility] 08/30/2025 12:35:07 OBGyn Episode No OBEpisode recorded.
--- OUTSIDE RECORDS SUMMARY | 2025-11-12 16:43 | XMS_ITS | Clinical Summary ---
Author Organization [facility] Address [address], [facility] [address] [place] [address] Phone Care Team Providers Care Semiconductor Technician Name Role Phone Julien Carreno MD Unavailable [phone] Eva Styles APN, CERAMIST Primary Care Pro vider Allergies Active Allergy Reactions Criticality Noted Date Comments Sulfa Antibiotics Hives 04/07/2022 Medications PARoxetine (PAXIL) 30 MG Tablet 01/20/2022 Active loratadine (CLARITIN) 10 MG Tablet Take 10 mg by mouth daily. Active ferrous sulfate 325 (65 Fe) MG Tablet Take 1 Tablet by mouth daily. 90 Tablet 3 04/07/2022 Active nitrofurantoin (MACRODANTIN) 100 MG Capsule 07/21/2023 Acti ve meloxicam (Mobic) 15 MG Tablet Take 1 tablet every day by oral route in the morning for 30 days. Active Active Problems Problem Noted Date Diagnosed Date Iron deficiency anemia due to chronic blood loss 07/23/2022 Immunizations Immunization Administration Dates Next Due Influenza, Seasonal, Injectable, Undefined 09/03,11/28/2013 Family History Medical History Relation Name Comments Prostate Cancer Father Stroke Father Anemia Mother Hypertension Mother Relation Name Status Comments Father Alive Mother Alive Social History Tobacco Use Types Packs/Day Years Used Date Smoking Tobacco: Never Smokeless Tobacco: Never Tobacco Cessation:Counseling Given: Not Answered Alcohol Use Standard Drinks/Week Comments Yes 12 (1 standard drink = 0.6 oz pu re alcohol) PHQ-2 Answer Date Recorded Total Score - Questions 1-9 0 06/29 Comments Unknown Sex and Gender Information Value Date Recorded Sex Assigned at Not on file Legal Sex Female 2:49 PM CDT Gender Identity Not on file Sexual Orientation Not on file Last Filed Vital Signs Vital Sign Reading Time Taken Comments Blood Pressure 150/84 05/11/2024 11:27 AM CDT Pulse 77 05/11/2024 11:27 AM CDT Temperature 37 C (98.6 F) 05/11/2024 11:27 AM CDT Respiratory Rate 18 05/11/2024 11:27 AM CDT Oxygen Saturation 97% 05/11/2024 11:27 AM CDT Inhaled Oxygen Concentration - - Weight 95.7 kg (211 lb) 05/11/2024 11:27 AM CDT Height 165.1 cm (5' 5) 05/11/2024 11:27 AM CDT Body Mass Index 35.11 05/11/2024 11:27 AM CDT Plan of Treatment Health Maintenance Due Date Last Done Comments Hepatitis C Virus (HCV) Screening 1972 Mammogram 1972 TdaP Immunization 1972 Hepatitis B Immunization (1 of 3 - 19+ 3-dose series) 1991 Pap Smear 1993 Cervical Cancer Screening (CCS) 2002 HPV/Cotest 2002 Cologuard 2017 Immunochemical Fecal Occult Blood 2017 Pneumococcal Immunization (50+ years) (1 of 1 - PCV) 2022 Influenza Immunization (#1) 07/29/202508/29, 09/03/2015, 11/28/2013 SARS-COV-2 Immunization ( season) 2025 02/11/2023, 11/22/2021, 03/19/2021, Additional history exists Colonoscopy 11/27/2031 11/27/2021 Colorectal Cancer Screening 11/27/2031 Respiratory Syncytial Virus (RSV) Immunization (Adult) (1 - 1-dose 75+ series) 2047 Zoster Immunization Completed 02/11/2023, Human Papillomavirus (HPV) Immunization (No Doses Required) Completed Meningococcal Immunization (ACWY) Aged Out No longer eligible based on patient's age to complete this topic Rotavirus Immunization Aged Out No lo nger eligible based on patient's age to complete this topic Insurance [employer] [facility] Care Teams Semiconductor Technician Relationship Specialty Start Date End Date Eva Styles, INSTRUMENT PANEL ASSEMBLER, CERAMIST [address] [place] [address] PCP - General Advanced Practice Nurse 04/07/22 Julien Carreno MD [address] [place] [id number] Consulting Physician Oncology 04/06/22
--- OUTSIDE RECORDS SUMMARY | 2025-11-12 16:43 | XMS_ITS | Continuity of Care Document ---
Author Organization [employer] [facility] Address [address] [place] [address] Assessment Encounter Date Assessment Date Assessment LastModified by Organization Details LastModified Time 08/27/2025 08/27/2025 1. Knee arthriti s with [...] control, and potential slowing of arthritic progression [email or web address] Not available 09/01/2025 23:21:01 Plan of Treatment Reminders Order Date Submit Date Provider Last Modified By Organization Details Last Modified Time Details Appointments None record ed. Lab None record ed. Referral None record ed. Procedures None record ed. Surgeries None record ed. Imaging None record ed. Medication Orders None record ed. Patient TargetsNo targets recorded. Patient InstructionsNo instructions recorded. Reason for Referral None Reported. Results Created Date Observation Date Name Description Value Unit Range Abnormal Flag Note LastModifiedBy Organization Detail LastModifiedTime 08/23/20 25 MRI, knee, w/o contr ast No observ ation record ed. [email or web address] Not Available 08/29 09:00:09 Result Notes None recorded. Problems No Known Problems Procedures Surgical History Date Name Laterality Status Provider Name and Address Organization Details Recorded Time 0 Tonsillectomy completed [facility] 07/25/2025 16:16:13 Imaging Results None recorded. Procedure [...] Not Available Vitals Date Recorded Body height Heart rate Systolic And Diastolic Provider Name and Address Organization Details Last Updated DateTime 08/27/2025 170.18 cm 64 /min 146/84 mm[Hg] G[facility]nesis Soares [facility] 08/27/2025 13:11:30 Social History Question Answer Notes LastModified by [facility] Details LastModified Time Tobacco Smoking Status Never Smoker Chiquita blount [facility] 07/25/2025 16:15:56 What Is Your Relationship Status? Information not available 07/25/2025 Sex: Unknown Functional Status Question Answer Note LastModified by [facility] Details LastModified Time What is your level [...] Not available 16:15:31 Medical History Condition Response HIV or AIDS N Coronary Artery Disease N Other Cancer N Gout N Kidney Stones N Hyperthyroidism N Breast Cancer N Head Trauma/Injury N Hernia N Lung Cancer N Blood Clots N COPD N Depression N Lung Disease N Hypothyroidism N Pneumonia N Pacemaker N Parkinson's N Anxiety Disorder N Multiple Sprains N Arthritis Y Alcohol / Substance Abuse N Kidney Cancer N Cancer N Melanoma N Stroke N Roly Danlos Syndrome (EDS) N Bowel Dysfunction N Leg or Foot Ulcers N Neck Injury N High Cholesterol N Skin Cancer N Liver Disease N Rheumatoid Arthritis N Fibromyalgia N Headaches N Gastric Issues N Concussion N Kidney Disease N Heart Problems N Scoliosis N Chronic use of Pain Medication N Prostate Cancer N Migraines N Thyroid Problems N Alzheimers N DVT N Autoimmune Disorder N Anemia N Multiple Sclerosis N Tendon Tear N Ulcers N Heart Attack ([place]) N Osteopenia N Diabetes N Bleeding Disorder N Seizures/Epilepsy N Cardiac Stent N Tuberculosis N A-FIB N BPH N Lymphoma N Urinary Tract Infection N Back Problems N Diverticulitis N Dementia N Asthma N Vision Problems N Lupus N Nursing Home Medication Use N Peripheral Vascular Disease N [...] ICD10 Code Diagnosis IMO Codes Diagnosis Note [id number] Noé Huggins [facility] [address] [facility] [place] [id number] 08/27/2025 12:58:11 08/27/2025 16:40:10 Pain of knee region [id number] M25.561 [id number] Health Concerns Section Related Observation LastModified by Organization Detai ls LastModified Time None Recorded Concern Status LastModified by Organization Details LastModified Time None Recorded Payers Encounter Date Sequence Insurance Name Policy Number Policy Mendiola Covered Member ID Mendiola Member ID Guarantor Name 08/27/2025 1 [facility] [id number] Bibi Karen [id number] Bibi Jones Notes Date Note Type Note Provider Name and Address Organization Details Recorded Time 08/27/2025 text/html Reba norris presents today with complaints of foot pain, [...] surgery as a next step. Noé Huggins [address], [place], [address], [facility] [employer] 09/01/2025 23:21:49 OBGyn Episode No OBEpisode recorded.
--- OUTSIDE RECORDS SUMMARY | 2025-11-12 16:43 | XMS_ITS | Clinical Summary ---
Author Organization [facility] Address [address] [place] [address] Phone Care Team Providers Care Laster Hand Name Role Phone Sanam Mckeon MD Primary Care Provider [phone] Allergies Active Allergy Reactions Criticality Noted Date Comments Sulfa (Sulfonamide Antibiotics) Rash Low 10/28 Medications LEVONORGESTREL-E TH ESTRA (LEVORA-28 ORAL) Take by mouth. Active PAROXETINE HCL (PAXIL ORAL) Take by mouth. Active LORATADINE ORAL Take by mouth. Active Active Problems Patient Care Coordination No te Formatting of this note migh t be different from the original. Pt denies any family hx of breast/ovarian ca Problem Noted Date Diagnosed Date Depression 11/11/2010 Resolved Problems Problem Noted Date Diagnosed Date Resolved Date Psychiatric disorder 010 Overview (11/11/2010): depression Family History Medical History Relation Name Comments Heart Disease Maternal Grandfather Hypertension Maternal Grandfather Lung Cancer Maternal Grandmother non-smo ker Prostate Cancer Paternal Grandfather Relation Name Status Comments Maternal Grandfather Maternal Grandmother Paternal Grandfather Social History Tobacco Use Types Packs/Day Years Used Date Smoking Tobacco: Never Smokeless Tobacco: Never Alcohol Use Standard Drinks/Week Comments Yes 0 (1 standard drink = 0.6 oz pur e alcohol) moderate Comments No Sex and Gender Information Value Date Recorded Sex Assigned at Not on file Legal Sex Female 5:58 AM TRIAGE REGISTER NURSE Gender Identity Not on file Sexual Orientation Not on file Occupation Industry Job Start Date Job End Date Not on file Not on file Not on file Not on file Last Filed Vital Signs Vital Sign Reading Time Taken Comments Blood Pressure 118/70 11/11/2010 2:49 PM TRIAGE REGISTER NURSE Pulse - - Temperature - - Respiratory Rate - - Oxygen Saturation - - Inhaled Oxygen Concentration - - Weight 83.5 kg (184 lb) 11/11/2010 2:49 PM TRIAGE REGISTER NURSE Height 170.2 cm (5' 7) 11/11/2010 2:49 PM TRIAGE REGISTER NURSE Body Mass Index 28.82 11/11/2010 2:49 PM TRIAGE REGISTER NURSE Plan of Treatment Health Maintenance Due Date Last Done Comments DTAP/TDAP/TD VACCINES (1 - Tdap) 1991 HEPATITIS B VACCINES (1 of 3 - 19+ 3-dose series) 09/28 HPV/Cotest (21-29) 1993 CERVICAL CANCER SCREENING 2002 HPV/Cotest (30-65) 2002 PAP SMEAR 2002 BREAST CANCER SCREENING 2012 09/28/2010 COLORECTAL SCREENING 2017 Colorectal Cancer Screening 2017 FIT-DNA Q 3 years 2017 FIT/FOBT Q 1 year 2017 Flex Sig/CT Colonography Q 5 years 2017 ZOSTER VACCINE (1 of 2) 2022 INFLUENZA VACCINE (#1) 2025 Procedures Procedure Name Priority Date/Time Associated Diagnosis Comments MAMMO DIAGNOSTIC BILATERAL W OR WO CAD Routine 09/28/2010 from Last 3 Months or Most Recently Relevant to Health Maintenance Results * MAMMO DIGITAL DIAG BILAT (09/28/2010) Anatomical Region Laterality Modality Breast Bilateral Other Rose HARTLEY MAMMO ORDERABLES Final Resul t from Last 3 Months or Most Recently Relevant to Health Maintenance Insurance [facility] [employer] PPO [id number] Care Teams Laster Hand Relationship Specialty Start Date End Date Sanam Mckeon MD [address] [address] PCP - General 11/14/15
--- OUTSIDE RECORDS SUMMARY | 2025-11-12 16:43 | XMS_ITS | Data Portability ---
Author Organization [facility] Address [address] [place] [address] [address] [place] [address] Care Team Providers Care English Tutor Name Role Phone BRIGHT CAMARA Primary Care Provider Assessment Encounter Date Assessment Date Assessment LastModified by Organization Details LastModified Time 07/20/2024 07/20/2024 Annual gynecological exam performed. Patient will come back in a year unless there are new symptoms. Not available 07/20/2024 10:37:15 08/30/2025 08/30/2025 Annual gynecological exam performed. Patient will come back in a year unless there are new symptoms. Not available 08/30/2025 10:41:29 Plan of Treatment Reminders Order Date Submit Date Provider Last Modified By Organization Details Last Modified Time Details Appointments None recorded. Lab pap, IG + HR HPV - HPV regardless but if HPV is positive need subtyping 16,18/45 2024 025 [facility] (Lab), [address], [place], [address], 14:27:31 test, urine 2023 024 [email or web address] [place], [address], [address], [place], [address], 11:56:23 Referral None recorded. Procedures None recorded. Surgeries None recorded. Imaging MAMMO, screening, digital, bilateral 2024 025 [facility], [address], [place], [address], 5 04:01:49 MAMMO, screening, digital, bilateral 2023 024 [facility], [address], [address], [place], [address], 5 05:01:48 Medication Orders Paxil 20 mg tablet 2024 025 [id number], [address], [id number], 5 12:31:15 Paxil 20 mg tablet 2023 024 [place] [facility], [address] [place] [address], [facility] [address], [place], [place], [id number], 4 14:33:26 Mirena 21 mcg/24 hr (up to 8 years) 52 mg intrauterin e device 2023 024 [email or web address] [facility] #36644, [address], [id number], 4 11:56:22 Diflucan 150 mg tablet 2023 025 [facility] #34960, [address], [id number], 5 10:43:25 clotrimazol e-betametha sone 1 %-0.05 % topical cream 2023 025 [facility], [address], [id number], 5 10:43:37 Patient TargetsNo targets recorded. Patient InstructionsNo instructions recorded. Reason for Referral None Reported. Results Created Date Observation Date Name Description Value Unit Range Abnormal Flag Note LastModifiedBy Organization Detail LastModifiedTime 07/20/20 24 07/20/2024 IMAGE GUIDE D PAP AND HPV REGAR DLESS image guided Pap, HPV regardless of Pap result SEE RESULT S BELOW CASE REPOR T: Cytol ogy Gynec ologi porfirio Repor t Case: [id number] Autho silvia hanna Provi priscilla: Ryan Hoffman MD Colle cted: 07/20 1043 Order ing Locat ion: [place] Patho velma Crespo leo: 07/23 0814 First Scree n: Diandra Pérez een: Viridiana nelson, Gabbi galindo, CT Speci men: Teresa jeong Pap - Image d, Cervi x STATE MENT OF ADEQU ACY: Satis facto ry for evalu ation Trans forma tion zone compo nent prese nt ----- ----- ----- ----- ----- ----- ----- ----- ----- ----- ----- ----- ----- ----- ----- ----- ----- ---- FINAL DIAGN OSIS: Negat johnson for Intra epith elial Bud castillo or Aaron gipson ([place]) . Elect lucio keita d by Gabbi Kent ed, CT on 2023 at 10:08 PM ----- ----- ----- ----- ----- ----- ----- ----- ----- ----- ----- ----- ----- ----- ----- ----- ----- ---- HPV RESUL TS: HPV mRNA E6/E7 : No HPV mRNA Detec melinda NOTE: This high risk HPV mRNA assay detec ts fourt een high- risk HPV types (16, 18, 31, 33, 35, 39, 45, 51, 52, 56, 58, 59, 66, 68) witho evan camilo ation . COMME NT: Slide scree jovon esther lly due to rejec tion by the Thinp rep Imagi ng Syste m. CLINI PORFIRIO INFOR MATIO N: Menst rual Statu s: LMP (if appli cable ): Clini porfirio Histo ry/Pr eviou s Pap: Type of Neopl hilda (if appli cable ): Signi fican t Clini porfirio Findi ngs: Other Histo ry: Hormo adin [...] ng do not corre late with physi porfirio and/o r histo rical findi ngs, furth er inves tigat ion is recom whitney d, as clini hamlet lima nted. Not Available [facility] (Lab) [address] , [place], [address], 07/26/2024 23:11:27 09/20/20 24 09/20/2024 WOMEN 'S HEALT H SWAB, JESSIE marta species, tma Positi ve negati ve abnormal Not Available [facility] (Lab) [address] [place], [address], 09/21/2024 11:04:55 09/20/20 24 09/20/2024 WOMEN 'S HEALT H SWAB, JESSIE marta glabrata, tma Negati ve negati ve Not Available [facility] (Lab) [address] [place], [address], 09/21/2024 11:04:55 09/20/2009/20/2024 WOMEN 'S HEALT H SWAB, JESSIE trichomonas vaginalis, tma Negati ve negati ve This assay tests for and diffe renti brian gentile en Quyen da glabr chelle, the Quyen da speci es group (C. albic ans, C. tropi calis , C. parap holly is, C. dubli niens is), and Trich omona s vagin yonathan by Trans cript ion-M ediat ed Ampli ficat ion (TMA) . Not Available [facility] (Lab) [address], [place], [address], 09/21/2024 11:04:55 09/20/2009/20/2024 WOMEN 'S HEALT H SWAB, JESSIE bacterial vaginosis (bv), tma Negati ve negati ve This test detec ts ribos omal RNA from bacte zuleima assoc iated with bacte rial vagin osis (BV), inclu ding Lacto bacil abraham (L. gasse ri, L. crisp atus and L. jense mackenzie), Gardn erell a vagin yonathan, and Atopo bium vagin ae by Trans cript ion-M ediat ed Ampli ficat ion (TMA) . A singl e quali tativ e resul t is repor melinda based on instr ument softw are to deter mine BV posit johnson or negat johnson statu s. Not Available [facility] (Lab) [address] [facility], [place], [address], 09/21/2024 11:04:55 10/05/2010/05/2024 pregn marta test, urine HCG negati ve Not Available [place] [address], [place], [address], 10/05/2024 11:33:39 08/30/2008/30/2025 IMAGE GUIDE D PAP AND HPV REGAR DLESS image guided Pap, HPV regardless of Pap result SEE RESULT S BELOW CASE REPOR T: Cytol ogy Gynec ologi porfirio Repor t Case: [id number] Autho deenawilliams jacques Provi priscilla: Rukhsana Ellis, LINDA Kendrick cted: 08/30 1338 Order ing Locat ion: [place] Patho velma Aragoni leo: 09/02 0700 First Scree n: Cathy Goff, CT Speci men: Teresa jeong Pap - Image d, Cervi x STATE MENT OF ADEQU ACY: Satis facto ry for evalu ation Trans forma tion zone compo nent prese nt Parti ally obscu ring infla mmati on prese nt ----- ----- ----- ----- ----- ----- ----- ----- ----- ----- ----- ----- ----- ----- ----- ----- ----- ---- FINAL DIAGN OSIS: Negat johnson for Intra epith elial Lesio jonathan or Aaron gipson ([place]IL) . Elect lucio sky bossman d by Cathy Goff, CT on 2024 [...] Thinp rep Imagi ng Syste m. CLINI PORFIRIO INFOR MATIO N: Menst rual Statu s: LMP (if appli cable ): Clini porfirio Histo ry/Pr eviou s Pap: Type of Neopl hilda (if appli cable ): Signi fican t Clini porfirio Findi ngs: Other Histo ry: Hormo adin (if appli cable ): PAP EDUCA GAIVNO L NOTE: The Pap Test is a [...] ng do not corre late with physi porfirio and/o r histo rical findi ngs, furth er inves tigat ion is recom whitney d, as clini hamlet warrkriss nted. Not Available [facility] (Lab) [address], [place], [address], 09/04/2025 14:27:31 03/06/20 25 03/06/2025 MAMMO , scree adenike, digit al, bilat eral No observ ation record ed. [facility] [address], [place], [address], 09/09/2025 16:02:04 Result Notes None recorded. Problems Name Problem SNOMED Code Status Onset Date Resolution Date Notes Provider Name and Address Organization Details Recorded Time Speciali zed medical examinat ion Completed 201003/04/2022 Gynecolo gical Examinat ion;Nabeel rded Elsewher e: No Locat ion: [facility] S ource: EHR Dredge Worker manolo: N Practi ce ID: 0001 Lewis lable Time: 03:30:00 PM [place] Foster [facility] 2 20:47:56 Educatio n Completed 201203/04/2022 Other general counseli ng and advice on contrace ptive manageme nt;Recor ded Elsewher e: No [facility] EHR Dredge Worker manolo: Y Practi ce ID: 0001 Lewis lable Time: 03:30:00 PM [place] Foster [facility] 2 20:47:56 Headache [id number] Completed 201303/04/2022 Headache ;Recorde d Elsewher e: No Locat ion: [facility] S ource: EHR Dredge Worker manolo: N Practi ce ID: 0001 Lewis lable Time: 01:00:00 PM [place] Foster [facility] 2 20:47:56 Female urinary stress incontin ence [id number] Completed 201303/04/2022 Stress incontin ence, female;R ecorded Elsewher e: No Locat ion: [facility] S ource: EHR Dredge Worker manolo: N Practi ce ID: 0001 Lewis lable Time: 01:00:00 PM [place] Foster [facility] 2 20:47:56 Insertio n of intraute rine contrace ptive device Completed 201303/04/2022 INSERTIO N OF IUD;Nabeel rded Elsewher e: No Locat ion: [facility] S ource: EHR Dredge Worker manolo: N Practi ce ID: 0001 Lewis lable Time: 10:30:00 AM [place] Foster [facility] 2 20:47:56 Amenorrh ea [id number] Completed 201403/04/2022 Amenorrh ea;Recor ded Elsewher e: No Locat ion: [facility] S ource: EHR Dredge Worker manolo: N Practi ce ID: 0001 Lewis lable Time: 10:30:00 AM [place] blount [facility] 2 20:47:56 Obesity [id number] Completed 201403/04/2022 Obesity; Recorded Elsewher e: No Locat ion: [facility] S ource: EHR Dredge Worker manolo: N Abnerti ce ID: 0001 Lewis lable Time: 02:45:00 PM [place] blount [facility] 2 20:47:56 Screenin g for malignan t neoplasm of cervix Completed 201403/04/2022 Screenin g for malignan t neoplasm s of the cervix;R ecorded Elsewher e: No Locat ion: [facility] S ource: [facility] [place] Campuso manolo: N Abnerti ce ID: 0001 Lewis lable Time: 02:45:00 PM [place] blount [facility] 2 20:47:56 Depressi ve disorder [id number] Completed 201503/04/2022 Major depressi ve disorder , single episode, unspecif ied;Nabeel rded Elsewher e: No Locat ion: [facility] S ource: EHR Dredge Worker manolo: N Abnerti ce ID: 0001 Lewis lable Time: 04:00:00 PM [place] blount [facility] [address] 20:47:[address] Concept Completed 201603/04/2022 Encntr for kilnman exam (general ) (routine ) w/o abn findings ;Practic e ID: 0001 [place] blount [facility] 2 20:47:56 Screenin g for malignan t neoplasm of rectum Completed 201603/04/2022 Encounte r for screenin g for malignan t neoplasm of rectum;P ractice ID: 0001 [place] blount [facility] [address] 20:47:[address] Concept Completed 201603/04/2022 Encntr for general adult medical exam w/o abnormal findings ;Recorde d Elsewher e: No Locat ion: [facility] S ource: EHR Dredge Worker manolo: N Practi ce ID: 0001 Lewis lable Time: 08:30:00 AM [place] Foster [facility] 2 20:47:56 Acute vaginiti s 11327706 Completed 201603/04/2022 Acute vaginiti s;Practi ce ID: 0001 [place] Foster [facility] 2 20:47:56 Foreign body Completed 201603/04/2022 Other specifie d retained foreign body fragment s;Practi ce ID: 0001 [place] Foster [facility], [facility] 2 20:47:56 Body mass index 30+ - obesity [id number] Completed 201703/04/2022 Body mass index (BMI) 33.0-33. 9, adult;Re corded Elsewher e: No Locat ion: [facility] S ource: EHR Dredge Worker manolo: N Practi ce ID: 0001 Lewis lable Time: 04:30:00 PM [place] Foster [facility] 2 20:47:56 Blood leukocyt e number above referenc e range [id number] Completed 201803/04/2022 Elevated white blood cell count, unspecif ied;Prac mellisa ID: 0001 [place] Foster [facility] 2 20:47:56 Replacem ent of intraute rine contrace ptive device Completed 201803/04/2022 Encntr for removal and reinsert ion of uterin contrace p dev;Nabeel rded Elsewher e: No Locat ion: [facility] S ource: EHR Dredge Worker manolo: N Practi ce ID: 0001 Lewis lable Time: 11:00:00 AM [place] Foster [facility] 2 20:47:56 Pregnanc y test negative [id number] Completed 201803/04/2022 Encounte r for pregnanc y test, result negative ;Recorde d Elsewher e: No Locat ion: [facility] S ource: EHR Dredge Worker manolo: N Rosa ce ID: 0001 Lewis lable Time: 11:00:00 AM [place] Foster [facility] 2 20:47:56 Clinical finding Completed 201803/04/2022 Presence of (intraut erine) contrace ptive device;R ecorded Elsewher e: No Locat ion: [facility] S ource: EHR Dredge Worker manolo: N Rosa ce ID: 0001 Lewis lable Time: 03:00:00 PM [place] Foster [facility] 2 20:47:56 Lump of subareol ar area of right breast [id number] 816609 Completed 201803/04/2022 Unspecif ied lump in right breast, subareol ar;Recor ded Elsewher e: No Locat ion: [facility] S ource: EHR Dredge Worker manolo: N Rosa ce ID: 0001 Lewis lable Time: 02:15:17 PM [place] Foster [facility] 2 20:47:56 Problem Notes None recorded. Procedures Surgical History Date Name Laterality Status Provider Name and Address Organization Details Recorded Time 03/06/20 25 Date of Last Mammogram completed Ila Sanchez [facility] 08/30/2025 10:44:24 10/05/20 24 IUD Removal completed TRISTIAN MILLER NP [address], [place], [address], [facility] 10/05/2024 11:54:06 10/05/20 24 IUD Insertion completed TRISTIAN MILLER NP [address], [place], [address], [facility] 10/05/2024 11:52:38 07/20/20 24 Date of Last Pap Smear completed Tana Lucia [facility] 09/18/2024 14:58:36 06/10/20 23 Colposcopy completed Eva Styles, [facility]- [address], [place], [address], [facility] 06/10/2023 16:39:20 06/10/20 23 Colposcopy completed Tarsha [facility] 01/03/2024 11:56:37 11/28/19 22 Date of Last Colonoscopy completed Tarsha Long [facility] 05/20/2023 12:04:40 LEEP completed Breonna Swartz [facility] 07/07/2020 15:35:42 Dilation and Curettage completed Breonna Swartz [facility] 07/07/2020 15:35:48 Imaging Results None recorded. [...] Not available Not available Not available 07/07/2020 73824 8003 [facility] 15:34:33 11486 nitrofura ntoin medicatio n Not available Not available Not available 03/05/2022 7454 RxNorm [place] [facility] 12:27:56 Medications Name Sig Start Date Stop Date Status Note LastModified by Organization Details LastModified Time Mirena 21 mcg/24 hr (up to 8 years) 52 mg intrauter ine device insert 2023 active Not Available Not Available Not Avai [...] josie jolley: Yes Loca tion: Leigha jolley [facility] Serge odify By: [email or web address] Encounte r DateTime : 01/01/20 15 10:30:00 AM Not Available Not Available Not Available paroxetin e 30 mg tablet TAKE 1 TABLET BY MOUTH DAILY 09/20 completed Not Available Not Available Not Available [...] Elsewher e: Yes Loca tion: Leigha jolley [facility] odify By: yulisa Nj untchet DateTime [...] Prescrib ed Elsewher e: No [facility] By: diego Jolley ncountchet DateTime : 11/15/20 12 10:45:00 AM Not Available Not Available Not Available Excedrin Extra Strength 250 mg-250 mg-65 mg tablet 02/14 completed Prescrib ed Elsewher e: Yes Loca tion: [facility] odify By: kelly barajas DateTime : 01/01/20 [...] Prescrib ed Elsewher e: Yes Loca tion: [facility] odify By: anna pineda DateTime : 03/28/20 [...] and Address Organization Details Last Updated DateTime 07/20/2024 166.37 cm 33.6 kg/m2 04937.44 g 149/89 mm[Hg] Ebony Medina [place] - [facility] 07/20/2024 10:41:23 Date Recorded Body height Body mass index (BMI) Body weight Systolic And Diastolic Provider Name and Address Organization Details Last Updated DateTime 08/30/2025 166.37 cm 34.7 kg/m2 97461.58 g 142/82 mm[Hg] Ila Sanchez [facility] 08/30/2025 10:42:10 Date Recorded Body height Body mass index (BMI) Body weight Systolic And Diastolic Provider Name and Address Organization Details Last Updated DateTime 09/20/2024 166.37 cm 34.7 kg/m2 44383.58 g 175/90 mm[Hg] Tarsha Chenger [facility] 09/20/2024 16:23:21 Date Recorded Body height Body mass index (BMI) Body weight Systolic And Diastolic Systolic And Diastolic Provider Name and Address Organization Details Last Updated DateTime 10/05/2024 166.37 cm 34.4 kg/m2 75014.4 g 161/86 mm[Hg] 149/82 mm[Hg] [facility] 11:30:11 Date Recorded Body height Body mass index (BMI) Body weight Systolic And Diastolic Provider Name and Address Organization Details Last Updated DateTime 11/13/2024 166.37 cm 34.6 kg/m2 27262.71 g 153/79 mm[Hg] [facility] 11/13/2024 14:16:23 Social History Question Answer Notes LastModified by Organizat ion Details LastModified Time Tobacco Smoking Status Never Smoker Ila Sanchez [facility] 11/07/2023 11:52:49 Do You Have An [...] Or The Highest Degree You Have Received? [id number] Information not available 03/05/2022 Do You Use [...] Have Difficulty Walking Or Climbing Stairs? No Information not available 11/07/2023 Sex: Unknown Functional [...] able to care for yourself independently? 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 No [email or web address] Information not available 11/07/2023 What is your exercise level? Occasional Information not available 03/05/2022 Mental Status Question Answer Note LastModified by Organization D etails LastModified Time Do you feel stressed (tense, restless, nervous, or anxious, or unable to sleep at night)? [id number] [email or web address] Information not available 07/20/2024 Family History Relationship Description Onset Age of this Age Resolved Age Notes LastModified by Organization Details LastModified Time Mother Diabetes mellitus [email or web address] Not available 2019 15:35:23 Mother Hypertensive disorder [email or web address] Not available 2019 15:35:27 Mother Cardiac arrhythmia [email or web address] Not available 08/30 10:42:22 Mother Heart disease [email or web address] Not available 2024 10:42:22 Father Disorder of thyroid gland Not available 2021 12:33:22 Father Cerebrovascu lar accident [email or web address] Not available 01/2025 10:46:11 Medical History Condition Response Allergies (Food, seasonal, environmental ) Y Other N Drug/Latex Allergies/Reactions N Blood Transfusion N Breast Cancer N Dermatologic Disorders N Lung Disease N Defects or Inherited Disease N Breast Problem N Gestational Diabetes N Hematologic disorders N Anesthesia Complications N History of STI N Deep Vein Thrombosis N Polycystic ovary syndrome N Anxiety Disorder Y Autoimmune disease N Arthritis N Polyps N Infertility N Acid Reflux (GERD) N History of abnormal pap N Cancer N Varicosities N Stroke N Neurologic/Epilepsy N Endometriosis N High Cholesterol N Fibromyalgia N Headaches N Kidney Disease N Heart Problems N Thyroid Problems N Kidney or Bladder Problems N GI Problems N Eating Disorder [...] ICD10 Code Diagnosis IMO Codes Diagnosis Note [id number] Eva Styles [facility] [address],[facility] [place] [address] 07/07/2020 15:25:26 07/07/2020 15:56:42 Vaginitis [id number] N76.0 Exam shows likely BV & vulvar irritation . Vag cx's sent Opts for solosec Will call if not covered. Time spent in visit is a total of 15 mins with at least 50% of visit consisting of counseling and review of plan of care. [address] [facility] [address] [address] 09/05/2020 10:25:11 09/05/2020 11:39:17 Gynecologic examination [id number] Z01.419 Suggested Calcium with Vitamin D 1200-1500m g daily. Patient advised to get an annual flu shot in the fall and she could obtain at [facility] or [facility] clinic. Also to obtain TDap vaccinatio n if you have not had one in the last 10 years. Recommend yearly mammograms . Encouraged monthly self breast exams. Encourage safe sexual practices, to use condoms and limit partners if not already in a monogamous relationsh ip. Engage in daily exercise of low impact aerobic exercise 45-60 minutes 4-5 times weekly. Avoid tobacco and illicit drugs as well as using moderation with alcohol intake less than 1-2 8 oz beverages daily. This lifestyle behavior pattern will lead to less health conditions and longer life span. If BMI greater than 25 weight watchers or dietary consult advised. All questions have been answered. Patient appears to understand informatio n, but if you have any questions please call or respond to this email. Norm Pap/HPV Pap/HPV updated STD sent new partner IUD jhoan loves it but has had a bit of light spotting since seeing her new partner. No pain or other sx's. Reduced libido 8294897 R 68.82 Having reduced libido & ability to achieve an orgasm. On Paxil 30mg but did not feel she had this issue until a few months after mirena placed. No other neurologic al issues/sx' s. In a new supportive relations ip. We agreed to trial of Wellbutrin . start 150mg x 7 days. If tolerating can increase to 300mg daily in morning & f/u x 8wks. Can consider addition of T-cream low dose if necessary. Counseled on r/b's, most common side effects of this therapy with instructio ns to stop medication with any significan t abnormal change in mood especially with thoughts of suicide/se lf-harm/kulkarni rm to others. Understand ing verbalized . [id number] Eva Styles [facility] [address],[place] [address] 10/28/2020 09:59:48 10/28/2020 10:34:19 Reduced libido 1028498 R68.82 Having reduced libido & ability to achieve an orgasm. On Paxil 30mg but did not feel she had this issue until a few months after mirena placed. No other neurologic al issues/sx' s. In a new supportive [facility] ip. We agreed to increase Wellbutrin XL 300mg today & RTO x 2mos. Can consider addition of T-cream low dose if necessary. Counseled on r/b's, most common side effects of this therapy with instructio ns to stop medication with any significan t abnormal change in mood especially with thoughts of suicide/se lf-harm/kulkarni rm to others. Understand ing verbalized . Time spent in visit is a total of 15 mins with at least 50% of visit consisting of counseling and review of plan of care. [id number] Eva Styles [facility] [address],[place] [address] 12/30/2020 09:22:34 12/30/2020 13:07:00 Reduced libido [id number] R68.82 Doing well on Wellbutrin XL 300mg. Does feel it has helped desire but still only around a 4-5 out of 10 on orgasm scale. We reviewed other options to try such as Addyi & vyleesi. She opts to stay with Wellbutrin xl for now. RF sent. Understand s that Paxil also causes issues with inhibiting orgasm but the boost in quality of life she recieves from paxil is worth it to her. Time spent in visit is a total of 15 mins with at least 50% of visit consisting of counseling and review of plan of care. Additional precaution ray measures were taken to minimize potential exposure to the Covid-19 virus during this patient s visit, including available hand roller helper upon arrive, temperatur e check and being asked a series of screening questions. All staff wore face coverings during this encounter, as well as provided additional cleaning and sanitizing of all surfaces, including countertop s, pens, chairs, door handles, light switches, etc, prior to and following the patient s visit. [id number] Eva Styles [facility] [address] [address] 05/08/2021 11:10:46 05/09/2021 16:53:57 Urgent desire to urinate [id number] R39.15 [facility] VISIT: Pt came in today c/o right lower back pain, lower abd discomfort , and urgency with urination x 5 days. slight temp this am at 99.2. per Eva Macrobid x 7 days. If temp >101 and pain gets worse go to the urgent care. Called pt and she was informed and v/u. [facility] [id number] Eva Styles [facility] [address] [address] 03/05/2022 12:13:18 03/05/2022 13:07:43 Gynecologic examination [id number] Z01.419 Suggested Calcium with Vitamin D 1200-1500m g daily. Patient advised to get an annual flu shot in the fall and she could obtain at [facility] or [facility] care clinic. Also to obtain TDap vaccinatio n if you have not had one in the last 10 years. Recommend yearly mammograms . Encouraged monthly self breast exams. Encourage safe sexual practices, to use condoms and limit partners if not already in a monogamous relationsh ip. Engage in daily exercise of low impact aerobic exercise 45-60 minutes 4-5 times weekly. Avoid tobacco and illicit drugs as well as using moderation with alcohol intake less than 1-2 8 oz beverages daily. This lifestyle behavior pattern will lead to less health conditions and longer life span. If BMI greater than 25 weight watchers or dietary consult advised. All questions have been answered. Patient appears to understand informatio n, but if you have any questions please call or respond to this email.Pap/ hpv due Screen declinedGe netic Screen discussedC olon Screen orderedDex a Screen naRoutine Labs orderedMam mo orderedA Mirena IUD prevents for up to 7 years, and also helps with heavy periods for up to 5 years in women who choose an IUD for control. Adult heal th examination 183934525 Z00.00 Needs routine labs but also went to give blood twice and told her iron levels are too low.Will assess this issues as well. Screening for malignant neoplasm of colon 047783226 Z12.11 Screening colonoscop y needed [id number] Eva Styles , [facility] [address] [address] 05/20/2023 11:54:43 05/20/2023 12:25:23 Gynecologic examination 26578624 Z01.419 Suggested Calcium with Vitamin D 1200-1500m g daily. Patient advised to get an annual flu shot in the fall and she could obtain at [facility] or [facility] care clinic. Also to obtain TDap vaccinatio n if you have not had one in the last 10 years. Recommend yearly mammograms . Encouraged monthly self breast exams. Encourage safe sexual practices, to use condoms and limit partners if not already in a monogamous relationsh ip. Engage in daily exercise of low impact aerobic exercise 45-60 minutes 4-5 times weekly. Avoid tobacco and illicit drugs as well as using moderation with alcohol intake less than 1-2 8 oz beverages daily. This lifestyle behavior pattern will lead to less health conditions and longer life span. If BMI greater than 25 weight watchers or dietary consult advised. All questions have been answered. Patient appears to understand informatio n, but if you have any questions please call or respond to this email.Pap/ hpv sentSTD Screen declinedGe netic Screen discussedC olon Screen orderedDex a Screen naRoutine Labs orderedMam mo ordered A Mirena IUD prevents for up to 8 years, and also helps with heavy periods for up to 5 years in women who choose an IUD for control. Screening mammography 24 539949 Z12.31 Menopausal symptom 25021 002 N95.1 [id number] [facility] [address] [address] 06/10/2023 09:03:54 06/10/2023 16:55:29 Screening procedure 26754998 Z13.9 Low grade squamous intraepithelial lesion on cervical Papanicolaou smear [id number] 9105 R87.612 See procedure notes.Post -procedure instructio ns reviewed with understand ing verbalized .Will contact with results & next steps in plan of care. Counseled on Pap/HPV guidelines /Testing/R esults with understand ing verbalized .All questions answered to patient satisfacti on. Booklet & additional resources regarding pap smear/HPV/ Pap results given. https://ww w.cancer.g ov/types/c ervical/un derstandin g-abnormal -hpv-and-p ap-test-re sults/unde rstanding- cervical-c hanges.pdf [id number] Rukhsana Ellis LINDA [place] [address],[facility] [place] [address] 10/18/2023 09:45:32 10/18/2023 10:54:56 Vaginitis 96856223 N76.0 suspect BVvaginiti s panel sentSTI testing declinedrx sent, r/b/a reviewed (pt prefers gel)vulvar care guidelines discussed IUD check 560166409 Z30. 431 normal appearing IUD strings noted on examwe agreed to update TVUS for IUD check Time spent in visit is a total of 30 mins with at least 50% of visit consisting of counseling and review of plan of care. [id number] Vikash Posada MD [place] [facility] [place] [address] [address] 11/07/2023 11:52:36 11/07/2023 12:31:53 Abnormal uterine bleeding [id number] 9100 N93.9 [id number] PAYAL Szymanski-[facility] [address] [address] 01/03/2024 11:41:42 01/03/2024 12:24:10 Lesion of vulva 961779603 N90.89 ??? Vulvar atrophic vaginitis vs questionab le HSV lesions right side skin of introital opening; HSV swab sent but may/may not detect it.Interna l vag exam wnl; viewed diva cup present.If everything is neg and valtrex does nothing; consider this is actually atrophic vaginitis for which topical estradiol would be a better therapy. Understand ing verbalized & agreeable to plan of care.Healt h Hx was reviewed and updated as reported in chart. Counseled on medication R/B's, Most common side effects, & use. All questions were answered to patient satisfacti on. Time spent in visit is a total of 21 mins with at least 50% of visit consisting of counseling and review of plan of care. [id number] MEGAN MARQUEZ MD [place] [address] [address] 07/20/2024 10:26:33 07/20/2024 11:29:31 Screening mammography 62194309 Z12.31 Gynecologi c examination 99059710 Z01.419 Well woman care- Cervical cancer screening: Pap smear obtained today, will follow up on the results with the patient as they become available- Breast cancer screening: mammogram ordered- Colon cancer screening: completed- HPV immunizati on: does not qualify- STD testing: declined- hereditary cancer screening: does not qualify for testing Irregular intermenstrual bleeding 71654136 N92.1 - likely due to decreased hormonal control with IUD (year 5+)- no pain- unlikely 2/2 hyperplasi a or cancer due to IUD in place- pelvic US 10/2023 wnl, normal IUD placement- discussed removal and replacemen t vs expectant management ; patient desires expectant management at this time [id number] Vikash Posada MD [place] [address] [address] 10/05/2024 11:24:02 10/05/2024 12:25:45 Insertion of intrauterine contraceptive device 34464208 Z30.430 Pt opting for IUD insertion. Risk factors reviewed and not present. HCG negative. Discussed cramping and bleeding for 6-8 weeks. Call with fever, foul discharge, or intense abdominal pain. Ibuprofen for cramping. Back in 4 weeks for string check. Reminded IUD no longer effective after 8yrs.Pt to monitor cycles, call office with any concerns or questions. Elevated blood-pressure reading without diagnosis of hypertension 562419234 R03.0 Discussed elevated BP readings today.Elysia ent denied hx of HTN.Pt denied SOB, chest pain, dizziness, palpitatio ns, severe headache. Discussed that if pt experience s these symptoms with elevated BP then she needs to go to the ER.Recomme nded hat patient obtain BP cuff and check BP twice daily and record readings.P atient to call PCP today and f/u with PCP regarding elevated BP readings.P atient to call office if she cannot get appointmen t with PCP within the next week as she may RTO for BP check at our office. Pt verbalized understand ing. [id number] Vikash Posada MD [place] [address] [address] 09/20/2024 15:45:31 09/20/2024 16:59:28 Vulvovaginitis 17366870 N76.0 53-year-ol d female with marked vulvar irritation and discomfort . She reports increasing vulvar irritation . She denies any vaginal discharge. examinatio n of vulvar field white thick vaginal discharge matted in the pubic hair, marked vulvar erythema and irritation and mild swelling over the entire vulvar surface. Swabs were obtained. We will follow up on swabs. We will treat for candidal vulvovagin itis she is prescribed 2 medication s. She was given instructio ns and precaution s on each medication . We talked about risks, benefits, and alternativ es to the medication . [id number] Vikash Posada MD [place] [address] [address] 11/13/2024 13:57:47 11/13/2024 14:39:46 Contraception care management 213601584 Z30.9 Discussed that IUD strings were intact/vis ible.Patie nt to call if she has any questions, or if bleeding becomes more frequent, heavy, or bothersome .RTO for well woman exam/PRN. Menopausal symptom 82201 002 N95.1 Patient doing well on Paxil for both vasomotor sx and depression . Denies concerns. Requests refill.Ris ks/benefit s reviewed. [id number] PAYAL Abreu [place] [facility] [place] [address] [address] 08/30/2025 10:26:51 08/30/2025 12:41:57 Gynecologic examination 22150026 Z01.599 [id number] WWEMirena IUD (inserted 09/2024 and will 09/2032)Dwayne [...] estions have been answered. Screening mammography 24 071590 Z12.31 [id number] Menopause finding 839610 006 N95.1 [id number] Reviewed perimenopa use/menopa use and associated symptomsdi scussed hormonal and non hormonal management optionsNAM S handout givendoing well on paxil and desires to continue, refills sent x 12 months Health Concerns Section Related Observation LastModified by Organization Detai ls LastModified Time None Recorded Concern Status LastModified by Organization Details LastModified Time None Recorded Advance Directives Directive N: Payers Insurance Date Sequence Insurance Name Policy Number Policy Mendiola Covered Member ID Mendiola Member ID Guarantor Name 08/29/2025 1 [facility] [id number] Bibi Jones [id number] Bibi Jones Notes Date Note Type Note Provider Name and Address Organization Details Recorded Time 07/20/20 text/ht ml Annual GYNReported by Patient Presents today for her annual well-woman exam. She reports concerns of spotting x3 weeks today. Denies abnormal vaginal discharge. She is sexually active and denies dyspareunia. She has not noticed any changes or masses in her breasts. No family hx of breast, colon, or ovarian cancer. Periods irregular with IUD, some daily spotting x3 weeks. Taking Paxil for VMS, taking every other day with good control. MEGAN MARQUEZ MD [address], [place], [address], [facility] 07/20/2024 11:21:42 09/20/20 text/ht ml Vaginal/Vulvar ProblemReported by Patient 53-year-old female with marked vulvar irritation and discomfort. She reports increasing vulvar irritation. She denies any vaginal discharge. examination of vulvar field white thick vaginal discharge matted in the pubic hair, marked vulvar erythema and irritation and mild swelling over the entire vulvar surface. Swabs were obtained. We will follow up on swabs. We will treat for candidal vulvovaginitis Vikash Posada MD [address], [place], [address], [facility] 09/20/2024 16:57:03 10/05/20 24 text/ht ml ROS as noted in the HPI Patient presents for IUD removal and insertion. Informed consent obtained.She has been counseled on all of the r/b/a of placement of an intrauterine device that include but are not limited to uterine perforation, injury to cervix, vagina, bladder, and bowel.Risks of bleeding due to injury or increased irregular bleeding due to progestin effect of the device. Risks of infection would be increased within the first 21 days of placement with concommitant cervicitis. She understands that the device will need to be removed in this instance due to increased risk of Pelvic inflammatory disease. Patient is aware she is at higher risk for STD and if contracted she could lose her fertility. Pt is aware that if occurs that she should contact office immediately to rule out ectopic which could be life threatening. IUD will also need to be removed and this could cause miscarriage. Patient also informed that in the event her strings are absent or embedded at the time of removal she may need to have the IUD surgically removed. She was informed of the above and properly consented. Patient to expect irregular bleeding but should be seen in the ED if bleeding increases to soaking a pad an hour for at least 2 hours. She verbalized understanding. TRISTIAN MILLER NP [address], [place], [address], [facility] 10/05/2024 12:24:21 11/13/20 24 text/ht ml Patient here for IUD string check. Patient denies concerns, reports occasional spotting.Patient requests refill of Paxil. Patient states that she takes Paxil every other day or every day for VMS sx and depression. Patient denies SI/HI. TRISTIAN MILLER NP [address], [place], [address], [facility] 11/13/2024 14:33:54 08/30/20 25 text/ht ml Annual GYNReported by PatientGenitourinary symptomsFor menstrual cycle, [...] use, andencourage regular mammograms starting age 40.54yo wweB - Mirena IUD (inserted 10/05/2024)last pap 06/2024 : nilm, HPV (-)h/o LEEPmammogram olonoscopy UTD doing well on paxil for VSM and depression, symptoms controlled has noticed increased brain fog, fatigue, trouble sleeping over the past yr Ila blount, [facility] 08/30/2025 12:35:07 OBGyn Episode Ob Episode Information Episode Created Date Number of Fetuses Patient Bloodtype Patient rh Status Prepregnancy Weight lbs Domestic Partner Domestic Partner Phone Father Name Grinder Machine Setter Status 07/07/20 20 1 CLOSED Fetus Data First Name Last Name Admitted to NICU Weight (g) Sex Living Outcome Pediatric Complications Fetus ID Race Codes Race Delivery Type [id number] Vaginal Delivery Michael Calculation Initial Michael Date Initial Exam Date Initial Exam Provider Initial Ultrasound Date Last Menstrual Period Date Ultra Sound Weeks Gestation 0 Eighteen To Twenty Week Michael Update Ultra Sound Date Fundal Height At Umbil Quickening Date Ultra Sound Latest Weeks Gestation Final Michael Confirmed By Final Michael Confirmed Date Final Michael Date Ultra Sound Latest Days Gestation 0 0 Menstrual History Last Menstrual Date Menses Monthly On Bcp Conception Prior Menses Frequency Hcg Plus Date Menarche Onset Age Delivery Information Delivery Date Delivery Type Labor Anesthesia Weeks Gestation Incision Type Labor Labor Length Hrs Delivered By Post Complications Tubal Sterilization Discharge Date Comments 2 Discharge Information Feeding Method Contraceptive Method Maternal HG B and HCT Levels Ob Episode Information Episode Created Date Number of Fetuses Patient Bloodtype Patient rh Status Prepregnancy Weight lbs Domestic Partner Domestic Partner Phone Father Name Grinder Machine Setter Status 07/07/20 20 1 CLOSED Fetus Data First Name Last Name Admitted to NICU Weight (g) Sex Living Outcome Pediatric Complications Fetus ID Race Codes Race Delivery Type [id number] Vaginal Delivery Michael Calculation Initial Michael Date Initial Exam Date Initial Exam Provider Initial Ultrasound Date Last Menstrual Period Date Ultra Sound Weeks Gestation 0 Eighteen To Twenty Week Michael Update Ultra Sound Date Fundal Height At Umbil Quickening Date Ultra Sound Latest Weeks Gestation Final Michael Confirmed By Final Michael Confirmed Date Final Michael Date Ultra Sound Latest Days Gestation 0 0 Menstrual History Last Menstrual Date Menses Monthly On Bcp Conception Prior Menses Frequency Hcg Plus Date Menarche Onset Age Delivery Information Delivery Date Delivery Type Labor Anesthesia Weeks Gestation Incision Type Labor Labor Length Hrs Delivered By Post Complications Tubal Sterilization Discharge Date Comments 8 Discharge Information Feeding Method Contraceptive Method Maternal HG B and HCT Levels Ob Episode Information Episode Created Date Number of Fetuses Patient Bloodtype Patient rh Status Prepregnancy Weight lbs Domestic Partner Domestic Partner Phone Father Name Grinder Machine Setter Status 03/05/20 22 1 CLOSED Fetus Data First Name Last Name Admitted to NICU Weight (g) Sex Living Outcome Pediatric Complications Fetus ID Race Codes Race Delivery Type , Induced [id number] Michael Calculation Initial Michael Date Initial Exam Date Initial Exam Provider Initial Ultrasound Date Last Menstrual Period Date Ultra Sound Weeks Gestation 0 Eighteen To Twenty Week Michael Update Ultra Sound Date Fundal Height At Umbil Quickening Date Ultra Sound Latest Weeks Gestation Final Michael Confirmed By Final Michael Confirmed Date Final Michael Date Ultra Sound Latest Days Gestation 0 0 Menstrual History Last Menstrual Date Menses Monthly On Bcp Conception Prior Menses Frequency Hcg Plus Date Menarche Onset Age Delivery Information Delivery Date Delivery Type Labor Anesthesia Weeks Gestation Incision Type Labor Labor Length Hrs Delivered By Post Complications Tubal Sterilization Discharge Date Comments 0 Discharge Information Feeding Method Contraceptive Method Maternal HG B and HCT Levels
== END 2025-11-12 14:12 | disposition home or self-care (01) ==
LOC: ANHLAB 14:14
PROVIDERS: PCP Nurse Practitioner Family; Visit Provider Anesthesiology
DX: D50.9 Iron deficiency anemia, unspecified (principal)
CPT/HCPCS: 36415; 85014; 85018

== ENCOUNTER 2025-11-15 02:27 | Day surgery (SDC) | payer OTHER, SELFPAY ==
[2025-11-11 15:37] VITALS: BMI 33.7
--- NOTE | 2025-11-11 15:45 | PC.NURSE ---
[facility] has started construction of its new state of the art ER which will open Spring 2026. With this, we anticipate parking may be a challenge for some our surgical patients and families. Parking spaces are limited but are available for all Surgical, obstetrics, and ER patients sharing this lot. If you arrive and find you are having a hard time finding a parking space, please note that we understand the challenges, please drive around the hospital and park near Hospital Entrance 1. When you enter this entrance, you can ask a volunteer to direct or take you back to the surgical waiting area to check in. We appreciate everyone?s understanding of these expected challenges while we build for your future. Report to the Outpatient Waiting Room, entrance under the green pavilion located off [address], at time _0630_ on date _11/12/25. Planned Procedure Time: 0830_.? Time changes happen often and if your time is changed the preop area will call you the afternoon before. - You and your visitor will be asked to self-screen and do not enter if you have any COVID symptoms. Please call surgeon if you need to reschedule. - A mask is optional within the hospital at this time. Patients may have clear liquids (water, carbonated beverages, clear teas, apple juice) until 3 hours prior to surgery with a maximum of 20 ounces. - No food from midnight until time of surgery and no smoking, or chewing tobacco (or any form of nicotine). No chewing gum, candy or mints. Take only the following medications with a SIP of water on the morning of surgery: ____PAXIL DO NOT STOP ANY OF YOUR OTHER PRESCRIPTION MEDICATIONS PRIOR TO SURGERY EXCEPT THE FOLLOWING Hold all vitamins and supplements for 3 days per anesthesiologist. Medications to discontinue per physician Date to take last dose Please no make-up, nail serbian, hairspray, perfume, deodorant, or body powder the day of surgery.? No jewelry (including any body piercings) or valuables the day of surgery, leave them at home.? Please take a shower or bath the night before, or the morning of, surgery with an antibacterial soap.? Wear comfortable, loose fitting clothing.? Children are encouraged to wear pajamas. - Jewelry must be removed prior to entering the operating room.? Rings and piercings that are not removed may be cut off. - The hospital will not accept responsibility for valuables.? - Please leave all valuables, including medications, at home the day of surgery. If you are going home after surgery, a licensed p d driver must drive you home.? - NO public transportation without another adult if you receive anesthesia. - We recommend that an adult stay with you for 24 hours following discharge. - We also recommend that you do not drive, make important decision, drink alcoholic beverages, or take any drugs that were not prescribed by your health care provider for at least 24 hours after your discharge time. For Pediatric surgeries, we recommend two adults accompany the child home. Follow any additional instructions given to you from your surgeon. Telephone instructions given to _PATIENT_and asked if any additional questions and then verbalized understanding. Patient advised to call surgeon office or pre surgery nurse liaison [phone] if any additional questions.
[2025-11-15] VITALS (9 sets, daily range): BP systolic 123–156; BP diastolic 64–82; PULSE 65–86; RESP 12–18; TEMP 36.4–37.4; O2SAT 94–100
--- OUTSIDE RECORDS SUMMARY | 2025-11-15 02:30 | XMS_ITS | Clinical Summary ---
Author Organization [facility] Address [address], [facility] [address] [place] [address] Phone Care Team Providers Care Bead Maker Name Role Phone Julien Carreno MD Unavailable [phone] Eva Styles APN, DIRECTOR OF CORPORATE MARKETING Primary Care Pro vider Allergies Active Allergy [...] patient's age to complete this topic Insurance Team-Match [facility] Care Teams Bead Maker Relationship Specialty Start Date End Date Eva Styles, ELECTRICAL WIRER, DIRECTOR OF CORPORATE MARKETING [address] [place] [address] PCP - General Advanced Practice Nurse 04/07/22 Julien Carreno MD [address] [place] [phone] Consulting Physician Oncology 04/06/22
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
--- OUTSIDE RECORDS SUMMARY | 2025-11-15 02:30 | XMS_ITS | Data Portability ---
Author Organization [facility] Address [address] [place] [place] [address] [place] [address] Care Team Providers Care Network Associate Name Role Phone BRIGHT CAMARA Primary Care Provider [phone] Assessment Encounter Date Assessment Date Assessment LastModified by Organization Details LastModified Time 07/20/2024 07/20/2024 Annual gynecological exam performed. Patient will come back in a year unless there are new symptoms. [email or web address] Not available 07/20/2024 10:37:15 08/30/2025 08/30/2025 Annual gynecological exam performed. Patient will come back in a year unless there are new symptoms. [email or web address] Not available 08/30/2025 10:41:29 Plan of Treatment Reminders Order Date Submit Date Provider Last Modified By Organization Details Last Modified Time Details Appointments None recorded. Lab pap, IG + HR HPV - HPV regardless but if HPV is positive need subtyping 16,18/45 2024 025 [facility] (Lab), [address], [place], [address], 14:27:31 test, urine 2023 024 [email or web address], [address], [address], [place], [address], 11:56:23 Referral None recorded. Procedures None recorded. Surgeries None recorded. Imaging MAMMO, screening, digital, bilateral 2024 025 [facility], [address], [place], [address], 5 04:01:49 MAMMO, screening, digital, bilateral 2023 024 [facility], [address], [place], [address], 5 05:01:48 Medication Orders Paxil 20 mg tablet 2024 025 [id number], [address], [id number], 5 12:31:15 Paxil 20 mg tablet 2023 024 [facility], [address] [place] [address], [facility] [address], [place], [place], [id number], 4 14:33:26 Mirena 21 mcg/24 hr (up to 8 years) 52 mg intrauterin e device 2023 024 [email or web address] [facility]166, [address], [id number], 4 11:56:22 Diflucan 150 mg tablet 2023 025 [facility] #96667, [address], [id number], 5 10:43:25 clotrimazol e-betametha sone 1 %-0.05 % topical cream 2023 025 [facility], [address], [id number], 5 10:43:37 Patient TargetsNo targets recorded. Patient [...] epith elial Bud castillo or Aaron gipson ([facility]) . Elect lucio keita d by Gabbi [...] as clini hamlet lima nted. Not Available [facility] (Lab) [address] , [place], [address], 07/26/2024 23:11:27 09/20/20 24 09/20/2024 WOMEN 'S HEALT H SWAB, JESSIE marta species, tma Positi ve negati ve abnormal Not Available [facility] (Lab) [address] [place], [address], 09/21/2024 11:04:55 09/20/20 24 09/20/2024 WOMEN 'S HEALT H SWAB, JESSIE marta glabrata, tma Negati ve negati ve Not Available [facility] (Lab) [address] [place], [address], 09/21/2024 11:04:55 09/20/2009/20/2024 WOMEN 'S HEALT H [...] Ampli ficat ion (TMA) . Not Available [facility] (Lab) [address], [place], [address], 09/21/2024 11:04:55 09/20/2009/20/2024 WOMEN 'S HEALT H [...] or negat [facility]. Not Available [facility] (Lab) [address] [facility], [place], [address], 09/21/2024 11:04:55 10/05/2010/05/2024 pregn marta test, urine HCG negati ve Not Available [facility] [address], [place], [address], 10/05/2024 11:33:39 08/30/2008/30/2025 IMAGE GUIDE D PAP AND HPV REGAR DLESS image guided Pap, HPV regardless of Pap result SEE RESULT S BELOW CASE REPOR T: Cytol ogy Gynec ologi porfirio Repor t Case: [id number] Autho deneawilliams jacques Provi priscilla: Rukhsana Ellis, LINDA Kendrick [...] as clini hamlet warrkriss nted. Not Available [facility] (Lab) [address], [place], [address], 09/04/2025 14:27:31 03/06/20 25 03/06/2025 MAMMO , scree adenike, digit al, bilat eral No observ ation record ed. [facility] [address], [place], [address], 09/09/2025 16:02:04 Result Notes None recorded. Problems Name Problem SNOMED Code Status Onset Date Resolution Date Notes Provider Name and Address Organization Details Recorded Time Speciali zed medical examinat ion Completed 201003/04/2022 Gynecolo gical Examinat ion;Nabeel rded Elsewher e: No Locat ion: [facility] S ource: EHR Valver manolo: N Practi ce ID: 0001 Lewis lable Time: 03:30:00 PM [place] Foster [facility] 2 20:47:56 Educatio n Completed 201203/04/2022 Other general counseli ng and advice on contrace ptive manageme nt;Recor ded Elsewher e: No [facility] Valver manolo: Y Practi ce ID: 0001 Lewis lable Time: 03:30:00 PM [place] Foster [facility] 2 20:47:56 Headache [id number] Completed 201303/04/2022 Headache ;Recorde d Elsewher e: No Locat ion: [facility] S ource: EHR Valver manolo: N Practi ce ID: 0001 Lewis lable Time: 01:00:00 PM [place] Foster [facility] 2 20:47:56 Female urinary stress incontin ence 48240423 Completed 201303/04/2022 Stress incontin ence, female;R ecorded Elsewher e: No Locat ion: [facility] S ource: EHR Valver manolo: N Practi ce ID: 0001 Lewis lable Time: 01:00:00 PM [place] [facility] 2 20:47:56 Insertio n of intraute rine contrace ptive device Completed 201303/04/2022 INSERTIO N OF IUD;Nabeel rded Elsewher e: No Locat ion: [facility] S ource: EHR Valver manolo: N Practi ce ID: 0001 Lewis lable Time: 10:30:00 AM [place] [facility] 2 20:47:56 Amenorrh ea 78050417 Completed 201403/04/2022 Amenorrh ea;Recor ded Elsewher e: No Locat ion: [facility] S ource: EHR Valver manolo: N Practi ce ID: 0001 Lewis lable Time: 10:30:00 AM [place] blount [facility] 2 20:47:56 Obesity 469410938 Completed 201403/04/2022 Obesity; Recorded Elsewher e: No Locat ion: [facility] S ource: EHR Valver manolo: N Abnerti ce ID: 0001 Lewis lable Time: 02:45:00 PM [place] blount [facility] 2 20:47:56 Screenin g for malignan t neoplasm of cervix Completed 201403/04/2022 Screenin g for malignan t neoplasm s of the cervix;R ecorded Elsewher e: No Locat ion: [facility] Abnerti ce ID: 0001 Lewis lable Time: 02:45:00 PM [place] blount [facility] 2 20:47:56 Depressi ve disorder 03856592 Completed 201503/04/2022 Major depressi ve disorder , single episode, unspecif ied;Nabeel rded Elsewher e: No Locat ion: [facility] S ource: EHR Valver manolo: N Abnerti ce ID: 0001 Lewis lable Time: 04:00:00 PM [place] blount [facility] [address] 20:47:[address] Concept Completed 201603/04/2022 Encntr for composite technician exam (general ) (routine ) w/o abn findings ;Practic e ID: 0001 [place] blount [facility] 2 20:47:56 Screenin g for malignan t neoplasm of rectum Completed 201603/04/2022 Encounte r for screenin g for malignan t neoplasm of rectum;P ractice ID: 0001 [place] blount [facility] [address]:47:[address] Concept Completed 201603/04/2022 Encntr for general adult medical exam w/o abnormal findings ;Recorde d Elsewher e: No Locat ion: [facility] S ource: EHR Valver manolo: N Practi ce ID: 0001 Lewis lable Time: 08:30:00 AM [place] [facility] 2 20:47:56 Acute vaginiti s 22071285 Completed 201603/04/2022 Acute vaginiti s;Practi ce ID: 0001 [place] [facility] 2 20:47:56 Foreign body Completed 201603/04/2022 Other specifie d retained foreign body fragment s;Practi ce ID: 0001 [place] Foster [facility], [facility] 2 20:47:56 Body mass index 30+ - obesity 566348933 Completed 201703/04/2022 Body mass index (BMI) 33.0-33. 9, adult;Re corded Elsewher e: No Locat ion: [facility] S ource: EHR Valver manolo: N Practi ce ID: 0001 Lewis lable Time: 04:30:00 PM [place] [facility] 2 20:47:56 Blood leukocyt e number above referenc e range 434482418 Completed 201803/04/2022 Elevated white blood cell count, unspecif ied;Prac mellisa ID: 0001 [place] [facility] 2 20:47:56 Replacem ent of intraute rine contrace ptive device Completed 201803/04/2022 Encntr for removal and reinsert ion of uterin contrace p dev;Nabeel rded Elsewher e: No Locat ion: [facility] S ource: EHR Valver manolo: N Practi ce ID: 0001 Lewis lable Time: 11:00:00 AM [place] [facility] 2 20:47:56 Pregnanc y test negative 015490723 Completed 201803/04/2022 Encounte r for pregnanc y test, result negative ;Recorde d Elsewher e: No Locat ion: [facility] S ource: EHR Valver manolo: N Rosa ce ID: 0001 Lewis lable Time: 11:00:00 AM [place] [facility] 2 20:47:56 Clinical finding Completed 201803/04/2022 Presence of (intraut erine) contrace ptive device;R ecorded Elsewher e: No Locat ion: [facility] S ource: EHR Valver manolo: N Rosa ce ID: 0001 Lewis lable Time: 03:00:00 PM [place] [facility] 2 20:47:56 Lump of subareol ar area of right breast [id number] 493387 Completed 201803/04/2022 Unspecif ied lump in right breast, subareol ar;Recor ded Elsewher e: No Locat ion: [facility] S ource: EHR Valver manolo: N Rosa ce ID: 0001 Lewis lable Time: 02:15:17 PM [place] [facility] 2 20:47:56 Problem Notes None recorded. Procedures Surgical History Date Name Laterality Status Provider Name and Address Organization Details Recorded Time 03/06/20 25 Date of Last Mammogram completed Ila Sanchez [facility] 08/30/2025 10:44:24 10/05/20 24 IUD Removal completed TRISTIAN MILLRE NP [address], [place], [address], [facility] 10/05/2024 11:54:06 10/05/20 24 IUD Insertion completed TRISTIAN MILLER NP [address], [place], [address], [facility] 10/05/2024 11:52:38 07/20/20 24 Date of Last Pap Smear completed Tana Lucia [facility] 09/18/2024 14:58:36 06/10/20 23 Colposcopy completed Eva Styles, [facility]- [address], [place], [address], [facility] 06/10/2023 16:39:20 06/10/20 23 Colposcopy completed Tarsha [facility] 01/03/2024 11:56:37 11/28/19 22 Date of Last Colonoscopy completed Tarsha Long [facility] 05/20/2023 12:04:40 LEEP completed Breonna Swartz [facility] 07/07/2020 15:35:42 Dilation and Curettage completed Breonna Swartz [facility] 07/07/2020 15:35:48 Imaging Results None recorded. [...] Not available Not available Not available 07/07/2020 61154 8003 SNOMED [facility] 15:34:33 84916 nitrofura ntoin medicatio n Not available Not available Not available 03/05/2022 7454 RxNorm [place] [facility] 2 12:27:56 Medications Name Sig [...] josie jolley: Yes Loca tion: Leigha jolley [facility] odify By: [email or web address] Encounte r DateTime [...] Elsewher e: Yes Loca tion: Leigha jolley [facility] odify By: yulisa Nj untchet DateTime [...] Prescrib ed Elsewher e: No [facility] By: diego Jolley ncountchet DateTime : 11/15/20 12 10:45:00 AM Not Available Not Available Not Available Excedrin Extra Strength 250 mg-250 mg-65 mg tablet 02/14 completed Prescrib ed Elsewher e: Yes Loca tion: [facility] odify By: kelly barajas DateTime : 01/01/20 [...] Prescrib ed Elsewher e: Yes Loca tion: [facility] odify By: anna pineda DateTime : 03/28/20 [...] Updated DateTime 07/20/2024 166.37 cm 33.6 kg/m2 65288.44 g 149/89 mm[Hg] Ebony Medina [place] - [facility] 07/20/2024 10:41:23 Date Recorded Body height Body mass index (BMI) Body weight Systolic And Diastolic Provider Name and Address Organization Details Last Updated DateTime 08/30/2025 166.37 cm 34.7 kg/m2 94312.58 g 142/82 mm[Hg] Ila Sanchez [facility] 08/30/2025 10:42:10 Date Recorded Body height Body mass index (BMI) Body weight Systolic And Diastolic Provider Name and Address Organization Details Last Updated DateTime 09/20/2024 166.37 cm 34.7 kg/m2 55689.58 g 175/90 mm[Hg] Tarsha Chenger [facility] 09/20/2024 16:23:21 Date Recorded Body height Body mass index (BMI) Body weight Systolic And Diastolic Systolic And Diastolic Provider Name and Address Organization Details Last Updated DateTime 10/05/2024 166.37 cm 34.4 kg/m2 82587.4 g 161/86 mm[Hg] 149/82 mm[Hg] [facility] 11:30:11 Date Recorded Body height Body mass index (BMI) Body weight Systolic And Diastolic Provider Name and Address Organization Details Last Updated DateTime 11/13/2024 166.37 cm 34.6 kg/m2 18757.71 g 153/79 mm[Hg] [facility] 11/13/2024 14:16:23 Social History Question Answer Notes LastModified by Organizat ion Details LastModified Time Tobacco Smoking Status Never Smoker Ila Sanchez [facility] 11/07/2023 11:52:49 Do You Have [...] Or The Highest Degree You Have Received? CG01401-5 Information not available 03/05/2022 Do You Use [...] Have Difficulty Walking Or Climbing Stairs? No [email or web address] Information not available 11/07/2023 Sex: Unknown Functional [...] able to care for yourself independently? 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 No [email or web address] Information not available 11/07/2023 What is your exercise level? Occasional Information not available 03/05/2022 Mental Status Question Answer Note LastModified by Organization D etails LastModified Time Do you feel stressed (tense, restless, nervous, or anxious, or unable to sleep at night)? [id number] Information not available 07/20/2024 Family History Relationship Description Onset Age of this Age Resolved Age Notes LastModified by Organization Details LastModified Time Mother Diabetes mellitus [email or web address] Not available 2019 15:35:23 Mother Hypertensive disorder [email or web address] Not available 2019 15:35:27 Mother Cardiac arrhythmia [email or web address] Not available 08/30 10:42:22 Mother Heart disease [email or web address] Not available 2024 10:42:22 Father Disorder of thyroid gland Not available 2021 12:33:22 Father Cerebrovascu lar accident [email or web address] Not available 01/2025 10:46:11 Medical History Condition [...] ICD10 Code Diagnosis IMO Codes Diagnosis Note [id number] Eva Styles [facility] [address],[facility] [address] 07/07/2020 15:25:26 07/07/2020 15:56:42 Vaginitis 85539460 N76.0 Exam shows likely BV & vulvar irritation . Vag cx's sent Opts for solosec Will call if not covered. Time spent in visit is a total of 15 mins with at least 50% of visit consisting of counseling and review of plan of care. [id number] [facility] [facility] [address] [address] 09/05/2020 10:25:11 09/05/2020 11:39:17 Gynecologic examination 77676996 Z01.419 Suggested Calcium with Vitamin D 1200-1500m g daily. Patient advised to get an annual flu shot in the fall and she could obtain at [facility] or [facility] clinic. Also to obtain TDap vaccinatio n [...] No pain or other sx's. Reduced libido 0506187 R 68.82 Having reduced libido & ability [...] rm to others. Understand ing verbalized . [id number] Eva Styles [facility] [address],[place] [address] 10/28/2020 09:59:48 10/28/2020 10:34:19 Reduced libido 7692532 R68.82 Having reduced libido & ability to achieve an orgasm. On Paxil 30mg but did not feel she had this issue until a few months after mirena placed. No other neurologic al issues/sx' s. In a new supportive [facility] ip. We agreed to increase Wellbutrin [...] counseling and review of plan of care. [id number] Eva Styles [facility] [address],[place] [address] 12/30/2020 09:22:34 12/30/2020 13:07:00 Reduced libido 6475484 R68.82 Doing well on Wellbutrin XL 300mg. [...] this patient s visit, including available hand grief counsellor upon arrive, temperatur e check and being asked a series of screening questions. All staff wore face coverings during this encounter, as well as provided additional cleaning and sanitizing of all surfaces, including countertop s, pens, chairs, door handles, light switches, etc, prior to and following the patient s visit. [id number] Eva Styles [facility] [address] [address] 05/08/2021 11:10:46 05/09/2021 16:53:57 Urgent desire to urinate 17785584 R39.15 [facility] Pt came in today c/o right lower back pain, lower abd discomfort , and urgency with urination x 5 days. slight temp this am at 99.2. per Eva Macrobid x 7 days. If temp >101 and pain gets worse go to the urgent care. Called pt and she was informed and v/u. [facility] [id number] Eva Styles [facility] [address] [address] 03/05/2022 12:13:18 03/05/2022 13:07:43 Gynecologic examination 48803180 Z01.419 Suggested Calcium with Vitamin D 1200-1500m g daily. Patient advised to get an annual flu shot in the fall and she could obtain at [facility] or [facility] care clinic. Also to obtain TDap [...] IUD for control. Adult heal th examination 016914303 Z00.00 Needs routine labs but also went to give blood twice and told her iron levels are too low.Will assess this issues as well. Screening for malignant neoplasm of colon 508422630 Z12.11 Screening colonoscop y needed [id number] Eva Styles , [facility] [address] [address] 05/20/2023 11:54:43 05/20/2023 12:25:23 Gynecologic examination 09250760 Z01.419 Suggested Calcium with Vitamin D 1200-1500m g daily. Patient advised to get an annual flu shot in the fall and she could obtain at [facility] or [facility] care clinic. Also to obtain TDap [...] an IUD for control. Screening mammography 24 759244 Z12.31 Menopausal symptom 79013 002 N95.1 [id number] Eva Styles [facility] [address] [address] 06/10/2023 09:03:54 06/10/2023 16:55:29 Screening procedure 22914973 Z13.9 Low grade squamous intraepithelial lesion on cervical Papanicolaou smear 5511040405 9105 R87.612 See procedure notes.Post -procedure instructio ns reviewed with understand ing verbalized .Will contact with results & next steps in plan of care. Counseled on Pap/HPV guidelines /Testing/R esults with understand ing verbalized .All questions answered to patient satisfacti on. Booklet & additional resources regarding pap smear/HPV/ Pap results given. [email or web address] w.cancer.g ov/types/c ervical/un derstandin g-abnormal -hpv-and-p ap-test-re sults/unde rstanding- cervical-c hanges.pdf [id number] Rukhsana Ellis LINDA [facility] [address],[facility] [address] 10/18/2023 09:45:32 10/18/2023 10:54:56 Vaginitis 78364875 N76.0 suspect BVvaginiti s panel sentSTI testing declinedrx sent, r/b/a reviewed (pt prefers gel)vulvar care guidelines discussed IUD check 903476437 Z30. 431 normal appearing IUD strings noted on examwe agreed to update TVUS for IUD check Time spent in visit is a total of 30 mins with at least 50% of visit consisting of counseling and review of plan of care. [id number] Vikash Posada MD [facility] [address] [address] 11/07/2023 11:52:36 11/07/2023 12:31:53 Abnormal uterine bleeding 1583780197 9100 N93.9 [id number] PAYAL Szymanski[facility] [address] [address] 01/03/2024 11:41:42 01/03/2024 12:24:10 Lesion of vulva 802902453 N90.89 ??? Vulvar atrophic vaginitis vs questionab [...] counseling and review of plan of care. [id number] MEGAN MARQUEZ MD [facility] [address] [address] 07/20/2024 10:26:33 07/20/2024 11:29:31 Screening mammography 91730138 Z12.31 Gynecologi c examination 08445570 Z01.419 Well woman care- Cervical cancer screening: Pap smear obtained today, will follow up on the results with the patient as they become available- Breast cancer screening: mammogram ordered- Colon cancer screening: completed- HPV immunizati on: does not qualify- STD testing: declined- hereditary cancer screening: does not qualify for testing Irregular intermenstrual bleeding 87780623 N92.1 - likely due to decreased hormonal control with IUD (year 5+)- no pain- unlikely 2/2 hyperplasi a or cancer due to IUD in place- pelvic US 10/2023 wnl, normal IUD placement- discussed removal and replacemen t vs expectant management ; patient desires expectant management at this time [id number] Vikash Posada MD [facility] [address] [address] 10/05/2024 11:24:02 10/05/2024 12:25:45 Insertion of intrauterine contraceptive device 83679108 Z30.430 Pt opting for IUD insertion. Risk [...] Elevated blood-pressure reading without diagnosis of hypertension 720859160 R03.0 Discussed elevated BP readings today.Elysia ent [...] at our office. Pt verbalized understand ing. [id number] Vikash Posada MD [facility] [address] [address] 09/20/2024 15:45:31 09/20/2024 16:59:28 Vulvovaginitis 92550376 N76.0 53-year-ol d female with marked vulvar [...] and alternativ es to the medication . [id number] Vikash Posada MD [facility] [address] [address] 11/13/2024 13:57:47 11/13/2024 14:39:46 Contraception care management 248543078 Z30.9 Discussed that IUD strings were intact/vis ible.Patie nt to call if she has any questions, or if bleeding becomes more frequent, heavy, or bothersome .RTO for well woman exam/PRN. Menopausal symptom 55075 002 N95.1 Patient doing well on Paxil for both vasomotor sx and depression . Denies concerns. Requests refill.Ris ks/benefit s reviewed. [id number] PAYAL Abreu [facility] [address] [address] 08/30/2025 10:26:51 08/30/2025 12:41:57 Gynecologic examination 34727545 Z01.089 [id number] WWEMirena IUD (inserted 09/2024 and will 09/2032)Dwayne [...] estions have been answered. Screening mammography 24 567426 Z12.31 [id number] Menopause finding 083516 006 N95.1 [id number] Reviewed perimenopa use/menopa use and associated symptomsdi [...] [place]iola Member ID Guarantor Name 08/29/2025 1 [facility] [id number] Bibi Jones [id number] Bibi Jones Notes Date Note Type Note [...] control. MEGAN MARQUEZ MD [address], [place], [address], [facility] 07/20/2024 11:21:42 09/20/20 text/ht ml Vaginal/Vulvar [...] vulvovaginitis Vikash Posada MD [address], [place], [address], [facility] 09/20/2024 16:57:03 10/05/20 24 text/ht ml [...] understanding. TRISTIAN MILLER NP [address], [place], [address], [facility] 10/05/2024 12:24:21 11/13/20 24 text/ht ml Patient here for IUD string check. Patient denies concerns, reports occasional spotting.Patient requests refill of Paxil. Patient states that she takes Paxil every other day or every day for VMS sx and depression. Patient denies SI/HI. TRISTIAN MILLER NP [address], [place], [address], [facility] 11/13/2024 14:33:54 08/30/20 25 text/ht ml [...] sleeping over the past yr Ila blount, [facility] 08/30/2025 12:35:07 OBGyn Episode Ob Episode Information Episode Created Date Number of Fetuses Patient Bloodtype Patient rh Status Prepregnancy Weight lbs Domestic Partner Domestic Partner Phone Father Name Tile Fitter Status 07/07/20 20 1 CLOSED Fetus Data [...] Domestic Partner Domestic Partner Phone Father Name Tile Fitter Status 07/07/20 20 1 CLOSED Fetus Data [...] Domestic Partner Domestic Partner Phone Father Name Tile Fitter Status 03/05/20 22 1 CLOSED Fetus Data First Name Last Name Admitted to NICU Weight (g) Sex Living Outcome Pediatric Complications Fetus ID Race Codes Race Delivery Type , Induced [id number] Michael Calculation Initial Michael Date Initial Exam [...]
--- OUTSIDE RECORDS SUMMARY | 2025-11-15 02:30 | XMS_ITS | Clinical Summary ---
Author Organization Erin Price on [place] Address [address] [place] [address] Phone Care Team Providers Care Zigzag Elastic Attacher Name Role Phone Sanam Mckeon MD Primary Care Provider [phone]- [phone] Allergies Active Allergy Reactions Criticality Noted Date [...] on file Legal Sex Female 5:58 AM SEAMER PANTY HOSE Gender Identity Not on file Sexual Orientation Not on file Occupation Industry Job Start Date Job End Date Not on file Not on file Not on file Not on file Last Filed Vital Signs Vital Sign Reading Time Taken Comments Blood Pressure 118/70 11/11/2010 2:49 PM SEAMER PANTY HOSE Pulse - - Temperature - - Respiratory Rate - - Oxygen Saturation - - Inhaled Oxygen Concentration - - Weight 83.5 kg (184 lb) 11/11/2010 2:49 PM SEAMER PANTY HOSE Height 170.2 cm (5' 7) 11/11/2010 2:49 PM SEAMER PANTY HOSE Body Mass Index 28.82 11/11/2010 2:49 PM SEAMER PANTY HOSE Plan of Treatment Health Maintenance Due Date [...] Most Recently Relevant to Health Maintenance Insurance [facility] [employer] PPO [id number] Care Teams Zigzag Elastic Attacher Relationship Specialty Start Date End Date Sanam Mckeon MD [address] [address] PCP - General 11/14/15
--- OUTSIDE RECORDS SUMMARY | 2025-11-15 02:30 | XMS_ITS | Continuity of Care Document ---
Author Organization [facility]CH[facility] Driggs Address [address] [place] [address] [address] Care Team Providers Care Surveying Or Spatial Science Technician Name Role Phone CAMARABRIGHT Primary Care Provider [phone] Assessment Encounter Date Assessment Date Assessment LastModified by Organization Details LastModified Time 08/30/2025 08/30/2025 Annual gynecological exam performed. Patient will come back in a year unless there are new symptoms. [email or web address] Not available 08/30/2025 10:41:29 Plan of Treatment Reminders Order Date Submit Date Provider Last Modified By Organization Details Last Modified Time Details Appointments None recorded. Lab pap, IG + HR HPV - HPV regardless but if HPV is positive need subtyping 16,18/45 2024 [facility] (Lab), [address], [place], [address], 14:27:31 Referral None recorded. Procedures None recorded. Surgeries None recorded. Imaging MAMMO, screening, digital, bilateral 2024 [facility], [address], [place], [address], 04:01:49 Medication Orders Paxil 20 mg tablet 2024 [id number], [address], [place], [place], [id number], 12:31:15 Patient TargetsNo targets recorded. Patient InstructionsNo [...] Gynec ologi sharron Repor t Case: [id number] Autho silvia hanna Provi priscilla: Rukhsana [...] as clini hamlet lima nted. Not Available [facility] (Lab) [address] [facility], [place], [address], 09/04/2025 14:27:31 Result Notes None recorded. Problems Name Problem SNOMED Code Status Onset Date Resolution Date Notes Provider Name and Address Organization Details Recorded Time Speciali zed medical examinat ion Completed 201003/04/2022 Gynecolo gical Examinat ion;Nabeel rded Elsewher e: No Locat ion: [facility] S ource: EHR Customer Business Manager manolo: N Practi ce ID: 0001 Lewis lable Time: 03:30:00 PM [place] [facility] 2 20:47:56 Educatio n Completed 201203/04/2022 Other general counseli ng and advice on contrace ptive manageme nt;Recor ded Elsewher e: No Locat ion: [facility] S ource: EHR Customer Business Manager manolo: Y Practi ce ID: 0001 Lewis lable Time: 03:30:00 PM [place] [facility] 2 20:47:56 Headache 93827846 Completed 201303/04/2022 Headache ;Recorde d Elsewher e: No Locat ion: [facility]: N Practi ce ID: 0001 Lewis lable Time: 01:00:00 PM [place] [facility] 2 20:47:56 Female urinary stress incontin ence [id number] Completed 201303/04/2022 Stress incontin ence, female;R ecorded Elsewher e: No Locat ion: [facility] S ource: EHR Customer Business Manager manolo: N Practi ce ID: 0001 Lewis lable Time: 01:00:00 PM [place] [facility] 2 20:47:56 Insertio n of intraute rine contrace ptive device Completed 201303/04/2022 INSERTIO N OF IUD;Nabeel rded Elsewher e: No Locat ion: [facility] S ource: EHR Customer Business Manager manolo: N Practi ce ID: 0001 Lewis lable Time: 10:30:[address] [place] [facility] 2 20:47:56 Amenorrh ea 54268633 Completed 201403/04/2022 Amenorrh ea;Recor ded Elsewher e: No Locat ion: [facility] S ource: EHR Customer Business Manager manolo: N Practi ce ID: 0001 Lewis lable Time: 10:30:00 AM [place] blount [facility] 2 20:47:56 Obesity 736990296 Completed 201403/04/2022 Obesity; Recorded Elsewher e: No Locat ion: [facility] S ource: EHR Customer Business Manager manolo: N Abnerti ce ID: 0001 Lewis lable Time: 02:45:00 PM [place] blount [facility] 2 20:47:56 Screenin g for malignan t neoplasm of cervix Completed 201403/04/2022 Screenin g for malignan t neoplasm s of the cervix;R ecorded Elsewher e: No Locat ion: [facility] S ource: EHR Customer Business Manager manolo: N Abnerti ce ID: 0001 Lewis lable Time: 02:45:00 PM [place] blount [facility] 2 20:47:56 Depressi ve disorder 62890592 Completed 201503/04/2022 Major depressi ve disorder , single episode, unspecif ied;Nabeel rded Elsewher e: No Locat ion: [facility] S ource: EHR Customer Business Manager manolo: N Abnerti ce ID: 0001 Lewis lable Time: 04:00:00 PM [place] blount [facility] 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 2 20:47:56 Screenin g for malignan t neoplasm of rectum Completed 201603/04/2022 Encounte r for screenin g for malignan t neoplasm of rectum;P ractice ID: 0001 [place] blount [facility] 2 20:47:[address] Concept Completed 201603/04/2022 Encntr for general adult medical exam w/o abnormal findings ;Recorde d Elsewher e: No Locat ion: [facility] S ource: EHR Customer Business Manager manolo: N Practi ce ID: 0001 Lewis lable Time: 08:30:00 AM [place] [facility] 2 20:47:56 Acute vaginiti s 73626475 Completed 201603/04/2022 Acute vaginiti s;Practi ce ID: 0001 [place] [facility], [facility] 2 20:47:56 Foreign body Completed 201603/04/2022 Other specifie d retained foreign body fragment s;Practi ce ID: 0001 [place] [facility], [facility] 2 20:47:56 Body mass index 30+ - obesity 002788392 Completed 201703/04/2022 Body mass index (BMI) 33.0-33. 9, adult;Re corded Elsewher e: No Locat ion: [facility] S ource: EHR Customer Business Manager manolo: N Practi ce ID: 0001 Lewis lable Time: 04:30:00 PM [place] [facility] 2 20:47:56 Blood leukocyt e number above referenc e range 141279006 Completed 201803/04/2022 Elevated white blood cell count, unspecif ied;Prac mellisa ID: 0001 [place] [facility], [facility] 2 20:47:56 Replacem ent of intraute rine contrace ptive device Completed 201803/04/2022 Encntr for removal and reinsert ion of uterin contrace p dev;Nabeel rded Elsewher e: No Locat ion: [facility] S ource: EHR Customer Business Manager manolo: N Practi ce ID: 0001 Lewis lable Time: 11:00:00 AM [place] blount [facility] 2 20:47:56 Pregnanc y test negative 609229088 Completed 201803/04/2022 Encounte r for pregnanc y test, result negative ;Recorde d Elsewher e: No Locat ion: [facility] S ource: EHR Customer Business Manager manolo: N Practi ce ID: 0001 Lewis lable Time: 11:00:00 AM [place] [facility] 2 20:47:56 Clinical finding Completed 201803/04/2022 Presence of (intraut erine) contrace ptive device;R ecorded Elsewher e: No Locat ion: [facility] S ource: EHR Customer Business Manager manolo: N Practi ce ID: 0001 Lewis lable Time: 03:00:00 PM [place] blount [facility] 2 20:47:56 Lump of subareol ar area of right breast [id number] 930227 Completed 201803/04/2022 Unspecif ied lump in right breast, subareol ar;Recor ded Elsewher e: No Locat ion: [facility] S ource: EHR Customer Business Manager manolo: N Abnerti ce ID: 0001 Lewis lable Time: 02:15:17 PM [place] [facility] 2 20:47:56 Problem Notes None recorded. Procedures Surgical History Date Name Laterality Status Provider Name and Address Organization Details Recorded Time 03/06/20 25 Date of Last Mammogram completed Ila Sanchez [facility] 08/30/2025 10:44:24 10/05/20 24 IUD Removal completed TRISTIAN MILLER NP [address], [place], [address], [facility] 10/05/2024 11:54:06 10/05/20 24 IUD Insertion completed TRISTIAN MILLER NP [address], [place], [address], [facility] 10/05/2024 11:52:38 07/20/20 24 Date of Last Pap Smear completed Tana Myers [facility] 09/18/2024 14:58:36 06/10/20 23 Colposcopy completed Eva Styles, [facility]- [address], [place], [address], [facility] 06/10/2023 16:39:20 06/10/20 23 Colposcopy completed Tarsha Long [facility] 01/03/2024 11:56:37 11/28/19 22 Date of Last Colonoscopy completed Tarsha Long [facility] 05/20/2023 12:04:40 LEEP completed Breonna Swartz [facility] 07/07/2020 15:35:42 Dilation and Curettage completed Breonna Swartz [facility] 07/07/2020 15:35:48 Imaging Results None recorded. [...] Not available Not available Not available 07/07/2020 64428 8003 SNOMED Breonna Swartz [facility] 0 15:34:33 61792 nitrofura ntoin medicatio n Not available Not available Not available 03/05/2022 7454 RxNorm [place] [facility] 2 12:27:56 Medications Name Sig Start [...] josie jolley: Yes Loca tion: Leigha jolley [facility] odify By: [email or web address] Encounte r DateTime [...] Elsewher e: Yes Loca tion: Leigha jolley [facility] odify By: yulisa Nj untchet DateTime : [...] ed Elsewher e: No Locat ion: Leigha [facility] odify By: diego barajas DateTime : 11/15/20 12 10:45:00 AM Not Available Not Available Not Available Excedrin Extra Strength 250 mg-250 mg-65 mg tablet 02/14 completed Prescrib ed Elsewher e: Yes Loca tion: [facility] odify By: kelly barajas DateTime : [...] Prescrib ed Elsewher e: Yes Loca tion: [facility] odify By: anna pineda DateTime : [...] Updated DateTime 08/30/2025 166.37 cm 34.7 kg/m2 67064.58 g 142/82 mm[Hg] Ila Sanchez [place] - [facility] 08/30/2025 10:42:10 Social History Question Answer Notes LastModified by Organizat ion Details LastModified Time Tobacco Smoking Status Never Smoker Ila blount, [facility] 11/07/2023 11:52:49 Do You Have An [...] Or The Highest Degree You Have Received? [id number] Information not available 03/05/2022 Do You Use [...] Have Difficulty Walking Or Climbing Stairs? No [email or web address] Information not available 11/07/2023 Sex: Unknown Functional [...] able to care for yourself independently? 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 No [email or web address] Information not available 11/07/2023 What is your exercise level? Occasional Information not available 03/05/2022 Mental Status Question Answer Note LastModified by Organization D etails LastModified Time Do you feel stressed (tense, restless, nervous, or anxious, or unable to sleep at night)? [id number] [email or web address] Information not available 07/20/2024 Family History Relationship Description Onset Age of this Age Resolved Age Notes LastModified by Organization Details LastModified Time Mother Diabetes mellitus [email or web address] Not available 2019 15:35:23 Mother Hypertensive disorder [email or web address] Not available 2019 15:35:27 Mother Cardiac arrhythmia Not available 08/30 10:42:22 Mother Heart disease [email or web address] Not available 2024 10:42:22 Father Disorder of thyroid gland Not available 2021 12:33:22 Father Cerebrovascu lar accident [email or web address] Not available 01/2025 10:46:11 Medical History Condition [...] ICD10 Code Diagnosis IMO Codes Diagnosis Note [id number] PAYAL Abreu Driggs [address] [address] 08/30/2025 10:26:51 08/30/2025 12:41:57 Gynecologic examination 03144399 Z01.332 [id number] WWEMirena IUD (inserted 09/2024 and will 09/2032)Dwayne [...] estions have been answered. Screening mammography 24 833062 Z12.31 [id number] Menopause finding 736888 006 N95.1 [id number] Reviewed perimenopa use/menopa use and associated symptomsdi [...] Mendiola Member ID Guarantor Name 08/30/2025 1 [facility] [id number] Bibi Jones [id number] Bibi Jones Notes Date Note Type Note [...] sleeping over the past yr Ila blount [place] - [facility] 08/30/2025 12:35:07 OBGyn Episode No OBEpisode recorded.
--- OUTSIDE RECORDS SUMMARY | 2025-11-15 02:30 | XMS_ITS | Continuity of Care Document ---
Author Organization [employer], [facility] Address [address] [place] [address] Assessment Encounter Date Assessment Date Assessment LastModified [...] contr ast No observ ation record ed. [email or web address] Not Available 08/29 09:00:09 Result Notes None recorded. Problems No Known Problems Procedures Surgical History Date Name Laterality Status Provider Name and Address Organization Details Recorded Time 0 Tonsillect[facility] 07/25/2025 16:16:13 Imaging Results None recorded. Procedure [...] cm 64 /min 146/84 mm[Hg] [facility]nesis Soares [facility] 08/27/2025 13:11:30 Social History Question Answer Notes LastModified by [employer] Details LastModified Time Tobacco Smoking Status Never Smoker [facility]iquita [facility]ount [facility] 07/25/2025 16:15:56 What Is Your Relationship Status? Information not available 07/25/2025 Sex: Unknown Functional Status Question Answer Note LastModified by [employer] Details LastModified Time What is your level [...] Medical History Condition Response Other Cancer N Coronary Artery Disease N HIV or AIDS N Gout N Kidney Stones N Hyperthyroidism N Breast Cancer N Head Trauma/Injury N Hernia N Lung Cancer N Depression N Lung Disease N COPD N Hypothyroidism N Blood Clots N Pneumonia N Pacemaker N Parkinson's N [...] Tendon Tear N Ulcers N Heart Attack ([place]) N Osteopenia N Diabetes N Bleeding Disorder N Seizures/Epilepsy N Cardiac Stent N Tuberculosis N A-FIB N BPH N Lymphoma N Urinary Tract Infection N Back Problems N Diverticulitis N Dementia N Vision Problems N Asthma N Lupus N Prison Medication Use N Peripheral Vascular Disease N [...] ICD10 Code Diagnosis IMO Codes Diagnosis Note [id number] Noé Huggins [facility] [address] [facility] [address] [address] [address] 08/27/2025 12:58:11 08/27/2025 16:40:10 Pain of knee region [id number] M25.561 [id number] Health Concerns Section Related Observation LastModified by Organization Detai ls LastModified Time None Recorded Concern Status LastModified by Organization Details LastModified Time None Recorded Payers Encounter Date Sequence Insurance Name Policy Number Policy Mendiola Covered Member ID Mendiola Member ID Guarantor Name 08/27/2025 1 [facility] [id number] Bibi Karen [id number] Bibi Jones Notes Date Note Type Note [...] surgery as a next step. Noé Huggins [address], [place], [address], [facility] Morgan [place], [employer] 09/01/2025 23:21:49 OBGyn Episode No OBEpisode recorded.
--- OUTSIDE RECORDS SUMMARY | 2025-11-15 02:30 | XMS_ITS | Data Portability ---
Author Organization [employer], [facility] Address [address] [place] [address] Assessment Encounter Date Assessment Date Assessment LastModified [...] contr ast No observ ation record ed. [email or web address] Not Available 08/29 09:00:09 Result Notes None recorded. Problems No Known Problems Procedures Surgical History Date Name Laterality Status Provider Name and Address Organization Details Recorded Time 0 Tonsillectomy completed Chiquita Sanchez [facility] [employer] [facility] 07/25/2025 16:16:13 Imaging Results None recorded. Procedure [...] Updated DateTime 07/25/2025 170.18 cm 32.1 kg/m2 74912.44 g 66 /min 160/89 mm[Hg] [facility] 07/25/2025 16:13:35 Date Recorded Body height Heart rate Systolic And Diastolic Provider Name and Address Organization Details Last Updated DateTime 08/27/2025 170.18 cm 64 /min 146/84 mm[Hg] [facility]nesis [facility]ares [facility] 08/27/2025 13:11:30 Social History Question Answer Notes LastModified by [employer] Details LastModified Time Tobacco Smoking Status Never Smoker [facility] 07/25/2025 16:15:56 What Is Your Relationship Status? Information not available 07/25/2025 Sex: Unknown Functional Status Question Answer Note LastModified by [employer] Details LastModified Time What is your level [...] Tendon Tear N Ulcers N Heart Attack ([place]) N Osteopenia N Diabetes N Bleeding Disorder N Seizures/Epilepsy N Cardiac Stent N Tuberculosis N A-FIB N BPH N Lymphoma N Urinary Tract Infection N Back Problems N Diverticulitis N Dementia N Vision Problems N Asthma N Lupus N Regional Agronomist Medication Use N Peripheral Vascular Disease N [...] ICD10 Code Diagnosis IMO Codes Diagnosis Note [id number] Noé Huggins [facility] [address] [facility] [place] [address] 07/25/2025 15:41:02 07/25/2025 16:58:46 Pain of knee region [id number] M25.561 G89.29 [id number] Noé Huggins [facility] [address] [place] [address] 08/27/2025 12:58:11 08/27/2025 16:40:10 Pain of knee region 2717688159 M25.561 [id number] Health Concerns Section Related Observation LastModified by Organization Detai ls LastModified Time None Recorded Concern Status LastModified by Organization Details LastModified Time None Recorded Advance Directives Directive None Recorded Payers Insurance Date Sequence Insurance Name Policy Number Policy Mendiola Covered Member ID Mendiola Member ID Guarantor Name 09/02/2025 1 [facility] [id number] Bibi Jones [id number] Bibi Jones Notes Date Note Type Note [...] after injections provided limited relief. Noé Huggins [address] [facility], [place], [address], [facility] [employer], [facility] 07/31/2025 13:31:11 08/27/2025 text/html Reba jr presents [...] surgery as a next step. Noé Huggins [address] [facility], [place], [address], [facility] [employer] [facility], [facility] 09/01/2025 23:21:49 OBGyn Episode No OBEpisode recorded.
[2025-11-15] MEDS: ACETAMINOPHEN 500 MG TABLET 1000 MG PO (07:00)
[2025-11-15] MEDS: CELECOXIB 200 MG CAPSULE PO (07:00)
--- NOTE | 2025-11-15 07:19 | WPDHPUPDATE1 ---
History and Physical Update Update Date/Time: 11/15/25 07:19 History and Physical has been reviewed, including an updated exam of the patient. There are NO changes in the patient's condition. Risks, benefits, and alternatives have been discussed and questions answered. Patient agrees to proceed with procedure.
--- NOTE | 2025-11-15 08:35 | WPDANESEPPF ---
Anes - Initial Pre Proc Eval Procedure: Operation Date: 11/15/25 08:30 Proposed Procedures p Right Knee Arthroscopy - Ivan Hopper MD Date/Time: 11/15/25 08:35 Surgeon: Ivan Hopper MD Pre Op Diagnosis: right knee medial meniscus tear Patient Data Age: 55 Gender: F Height: 1.68 m Weight: 97.55 kg Last Vital Signs Temp 37.4 C 11/15/25 07:00 Pulse 66 11/15/25 07:00 Resp 16 11/15/25 07:00 BP 154/79 H 11/15/25 07:00 Pulse Ox 98 11/15/25 07:00 O2 Del Method Room Air 11/15/25 07:00 Allergies Allergy/AdvReac Type Severity Reaction Status Date / Time Sulfa (Sulfonamide Allergy Unknown unknown Verified 11/15/25 07:37 Antibiotics) avocado AdvReac Severe Unknown Verified 11/15/25 07:37 Home Medications ?Medication ?Instructions ?Recorded ?Confirmed ?Type loratadine 10 mg tablet 10 mg PO DAILY 03/19/22 11/11/25 History paroxetine HCl 30 mg tablet (Paxil) 30 mg PO DAILY 03/19/22 11/15/25 History ferrous sulfate 1 tablet PO DAILY 04/26/25 11/11/25 History chlorhexidine gluconate 4 % 1 applic topical ONCE #237 mL 10/28/25 11/11/25 Rx topical liquid (Hibiclens) hydrocodone 5 mg-acetaminophen 325 1 tablet PO Q12H PRN pain #20 tabs 11/15/25 Rx mg tablet Patient hx anesthesia problems: none Family hx anesthesia problems: none Results Review: All pre-operative results and documents have been reviewed as part of the pre-operative evaluation. 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 Encounter to establish care Encounter for screening colonoscopy Shoulder pain, left Effusion of knee joint Right knee DJD Arthritis UTI (urinary tract infection) Bleeding nose Family History Family History Father Malignant neoplasm of prostate Cerebrovascular accident Thyroid disorder Mother Diabetes mellitus Hypertension Heart disease Grandparent Lung cancer Diabetes mellitus Hypertension Grandparent Heart disease Social History Social History Smoking status: Never smoker Alcohol intake: current Drinks per week: 4 Alcohol use details: wine Substance use: never Lack of Transportation: No Lack of Food: Never True Current Housing: I Have Housing Concerned About Future Housing: No Difficulty Paying Gas/Electric Bills: No Difficulty Paying for Meds: No Currently Unemployed: No Education: Bachelor's Degree Difficulty w/ Childcare or Family Care: No Living arrangements: with family 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/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 Informed Consent: The patient's anesthetic plan and its attendant risks and benefits were discussed with the patient/family/POA. Questions were solicited and answers provided to the satisfaction of the patient/family/POA.
[2025-11-15] MEDS: SCOPOLAMINE 1 MG PATCH 1 PATCH TRANSDERM (08:50)
[2025-11-15] MEDS: LACTATED RINGERS 1,000 ML 30 ML IV CONT ×2 (08:50→10:49)
[2025-11-15] MEDS: ceFAZolin 2 GM in SODIUM CHLORIDE 0.9% IV 50 ML 100 ML IVPB (08:55)
[2025-11-15] MEDS: BUPivacaine HCL 0.5% 10 ML AMP 30 ML INFILTRATE (09:22)
[2025-11-15] MEDS: methylPREDNISolone ACETATE 80 MG/ML VIAL IM (09:30)
--- NOTE | 2025-11-15 09:58 | P.OP_ITS ---
Procedure Note - Detailed Date of Procedure 11/15/25 Pre-op Diagnosis right knee medial meniscus tear Post-op Diagnosis Same Procedure Performed RIGHT KNEE SCOPE Surgeon Ivan Hopper MD Anesthesia General Description of Procedure PATIENT WAS TAKEN TO THE OR. RIGHT LEG WAS PREPPED AND DRAPED STERILE. TROCARS WERE PLACED IN THE USUAL FASHION. CAMERA WAS INTRODUCED. THERE WAS CHONDROMALACIA TO THE PATELLA FEMORAL JOINT. THERE WAS A LOT OF SYNOVITIS IN ALL COMPARTMENTS. THE MEDIAL COMPARTMENT SHOWED CHONDROMALACIA TO THE MEDIAL FEMORAL CONDYLE. THERE WAS A LARGE AREA THAT DEMONSTRATED UNSTABLE CARTILAGE OVER THE MAIN WEIGHT BEARING SURFACE. THE EDGES OF THE LESION WAS DEBRIDED WITH A SHAVER TO PREFORM A CHONDROPLASTY. THERE WAS A SMALL COMPLEX MEDIAL MENISCUS TEAR. THE TEAR WAS RESECTED WITH A BITER AND A SHAVER DOWN TO A SMOOTH BASE. THE ACL WAS INTACT. THE LATERAL MENISCUS WAS TORN AT THE ANTERIOR HORN. THE TEAR WAS RESECTED. THE LATERAL COMPARTMENT HAD MINIMAL CHONDROMALACIA AT THE LATERAL PLATEAU. CHONDROPLASTY WAS PREFORMED. A SYNOVECTOMY WAS PREFORMED WELL. THE PATELLO FEMORAL JOINT UNDERWENT CHONDROPLASTY. THERE WAS GRADE 3 CHONDROMALACIA IN MOST OF THE TROCHLEA AND PART OF THE PATELLA. THERE WAS COMPLETE FULL THICKNESS DEFECTS IN BOTH THE PATELLA AND THE TROCHLEA. SYNOV ECTOMY WAS PREFORMED IN THE SUPERIOR MEDIAL COMPARTMENT. THE WOUNDS WERE APPROXIMATED WITH 4.0 NYLON. STERILE DRESSING WAS APPLIED. PATIENT WAS EXTUBATED. Estimated Blood Loss 5 Complications No immediate complications Condition Stable Disposition PACU
[2025-11-15] MEDS: fentaNYL CITRATE INJ (*CRX) 100 MCG/2 ML VIAL 25 MCG IV PUSH ×2 (10:49→10:52)
[2025-11-15 14:00] LABS: BEDSIDEPREGUCG Negative (Negative)
== END 2025-11-15 12:15 | disposition home or self-care (01) ==
PROVIDERS: PCP Nurse Practitioner Family; Visit Provider Orthopaedic Surgery
PROC: (CPT 29870; principal; 2025-11-15 08:30)
DX: S83.231A Complex tear of medial meniscus, current injury, right knee, initial encounter (principal); S83.281A Other tear of lateral meniscus, current injury, right knee, initial encounter; M94.261 Chondromalacia, right knee; M65.861 Other synovitis and tenosynovitis, right lower leg; M17.11 Unilateral primary osteoarthritis, right knee; X58.XXXA Exposure to other specified factors, initial encounter; E66.9 Obesity, unspecified; Z68.34 Body mass index [BMI] 34.0-34.9, adult; Z79.891 Long term (current) use of opiate analgesic; Z80.42 Family history of malignant neoplasm of prostate; Z80.1 Family history of malignant neoplasm of trachea, bronchus and lung; Z82.49 Family history of ischemic heart disease and other diseases of the circulatory system
CPT/HCPCS: 29880; J0690; A9270; J1010; J1100; J2003; J2250; J2405; J2704; J3010; J7120